=== PATIENT | female | born 2000 | race Caucasian/White ===

== ENCOUNTER 2018-12-16 04:03 | Emergency (ER) | payer OTHER, SELFPAY ==
[2018-12-16 04:05] VITALS: BP 122/93; PULSE 72; RESP 18; TEMP 37.1; O2SAT 99; BMI 38.2
[2018-12-16] MEDS: ACETAMINOPHEN 325 MG TABLET 650 MG PO (04:26)
--- NOTE | 2018-12-16 04:26 | ED_ITS ---
HPI - Head Injury General Chief complaint: Headache Stated complaint: Hit in the head at work Time Seen by Provider: 12/16/18 04:05 Source: patient Mode of arrival: ambulatory Limitations: no limitations History of Present Illness HPI Narrative: Patient is a otherwise healthy 18-year-old female here for evaluation of head injury. Approximately 15 min prior to arrival here in the emergency department she stated that she hit her head on a metal door. She states that it was on the flat portion of the door. She states that she potentially lost consciousness however if she did this for a very short period of time. She states that she does have a headache and some unsteadiness with walking. Has never had a concussion in the past. Related Data Previous Rx's Medication Instructions Recorded amoxicillin 500 mg PO Q8H 7 Days #0 cap 02/16/17 Allergies Allergy/AdvReac Type Severity Reaction Status Date / Time No Known Allergies Allergy Uncoded 01/04/18 12:44 Review of Systems Constitutional Denies fatigue, Denies frequent falls and Reports headache(s) Eyes Denies diplopia ENT Ears, Nose, Mouth, and Throat: Denies vertigo, Reports dizziness, Reports headache(s) and Reports disequilibrium Cardiovascular Denies chest pain, Denies syncope and Denies dyspnea Respiratory Denies dyspnea Gastrointestinal Gastrointestinal: Denies abdominal pain Integumentary/Breasts Denies lesions and Denies rash Neurologic Denies abnormal speech, Denies confusion, Denies vertigo, Reports dizziness, Denies syncope, Denies frequent falls, Reports headache(s), Reports lack of coordination, Denies paresthesias and Reports disequilibrium Psychiatric Denies confusion Endocrine Denies fatigue PFSH Medical History Anxiety (Acute) Social History lives independently: Yes Social History lives independently: Yes Exam Const General: cooperative, healthy appearing, comfortable, well developed, well groomed and No acute distress Orientation: alert, awake and oriented x3 HENMT Head: normal to inspection, normocephalic and atraumatic Nose: external nose normal Face and sinus: normal facial exam Mouth: oral mucosae normal Eyes Pupils: PERRL EOM: EOM intact bilaterally Resp Effort & Inspection: normal respiratory effort Auscultation: clear to auscultation bilaterally Cardio Rate: regular rate Rhythm: regular rhythm Back/Spine/Pelvis Cervical Spine: No cervical spinal tenderness Skin Lesions: no lesions Rashes: no rashes Neuro General: alert, awake and oriented x3 Cranial Nerves: CN's II-XI intact bilaterally Cognition: normal cognition Speech: speech normal Extrem General: normal to inspection and capillary refill normal Psych Appearance: grossly normal and well kempt Scores GCS Gene coma scale eye opening: Spontaneous [place] coma scale verbal response: Orientated [place] coma scale motor response: Obey commands [place] coma scale total score: 15 Nexus Score for C-Spine Focal Neurologic deficit present: No Midline spinal tenderness present: No Altered level of conciousness present: No Intoxication present: No Distracting Injury Present: No Nexus Criteria for C-spine: 0 MDM - Head Injury MDM Narrative Medical decision making narrative: Nontoxic appearing. No depressed skull fracture felt. There are no breaks in the skin that need suturing. Do suspect the patient has a concussion. I did discuss this with her. We discussed the expected course of a concussion. We did discuss potential symptoms that she could have. We did discuss return precautions. Formed her to contact her primary doctor for follow-up. She expressed understanding and agreement with plan. Discharge Plan Departure Patient Disposition: Home Clinical Impression: Closed head injury Qualifiers: Encounter type: initial encounter Qualified Code(s): S09.90XA - Unspecified injury of head, initial encounter Concussion Qualifiers: Encounter type: initial encounter Loss of consciousness presence/duration: with LOC of unspecified duration Qualified Code(s): S06.0X9A - Concussion with loss of consciousness of unspecified duration, initial encounter Instructions: Concussion, Closed Head Injury Activity Restrictions/Additional Instructions: Recommend that you contact your primary care doctor for follow-up. You are only restricted in your activity by avoiding activities that make her symptoms worse. Return to the emergency department for any new or worsening symptoms Prescriptions: No Action amoxicillin 500 MG capsule 500 mg PO Q8H 7 Days Qty: 0 RF: 0 Stand Alone Forms: Work Release Note
== END 2018-12-16 04:39 | disposition home or self-care (01) ==
PROVIDERS: Emergency Provider Emergency Medicine
DX: S06.0X9A Concussion with loss of consciousness of unspecified duration, initial encounter (principal); W22.8XXA Striking against or struck by other objects, initial encounter; Y99.0 Civilian activity done for income or pay
CPT/HCPCS: 99282; 99283

== ENCOUNTER 2020-02-18 04:37 | Emergency (ER) | payer OTHER, MEDICAID, SELFPAY ==
[2020-02-18 04:40] VITALS: BP 136/65; PULSE 92; RESP 20; TEMP 36.4; O2SAT 96; BMI 37.1
--- NOTE | 2020-02-18 04:49 | ED.GENADULT ---
HPI - General Adult General Chief complaint: Shortness of Breath/Dyspnea Stated complaint: SOB/cough up dark green phlem/wheezing Time Seen by Provider: 02/18/20 04:48 History of Present Illness HPI narrative: 19-year-old woman with a history of asthma who has been unable to get into a primary care provider for a number of months. She has been using her albuterol inhaler, 2 puffs, up to 4 times a day and ran out a number of months ago. Her asthma has been getting progressively worse and she is feeling more shortness of breath particularly with exertion and noticing increasing wheeze. Over the last 24 hours she has begin producing greenish sputum shortness of breath and wheeze have all gotten worse. She denies fevers, overall weakness is able to speak in full sentences quite comfortably, no orthopnea, no palpitations, no chest pain, no abdominal pain/nausea/vomiting/diarrhea. Over the last few weeks she has noticed a minor rash over her mid forehead and both cheeks. Slightly erythematous but not painful or pruritic. Related Data Previous Rx's Medication Instructions Recorded amoxicillin 500 mg PO Q8H 7 Days #0 cap 02/16/17 albuterol sulfate 2 puff INHALATION QID PRN #6.7 gram 02/18/20 azithromycin See Rx Instructions .ROUTE 02/18/20 .COMPLEX #6 tab fluticasone propionate 1 puff INHALATION BID #12 gram 02/18/20 Allergies Allergy/AdvReac Type Severity Reaction Status Date / Time No Known Allergies Allergy Uncoded 01/04/18 12:44 Review of Systems Review of Systems Narrative: Pertinent positive and negative findings as per HPI She does note that her left eye had been somewhat itchy over the last week but it seems like it is getting better in the last couple of days Remainder of review of systems is otherwise unremarkable for : Dysuria, hematuria, flank pain MS: Muscle weakness, numbness, joint swelling or warmth Neuro: Syncope, dizziness, tingling Psych: Depression, anxiety, suicidal ideation Patient History Medical History (Updated 02/18/20 @ 05:11 by Corry Dela Cruz MD) Anxiety (Acute) Asthma (Acute) Social History (Updated 12/16/18 @ 04:22 by Vick Young DO) lives independently: Yes Smoking Status: Never smoker Exam Narrative Exam Narrative: General: Healthy appearing, in no acute distress. Able to give a complete and coherent history. Well-nourished well-developed HEENT: Moist mucous membranes, normal sclera bilaterally with no discharge from the eyes Neck: supple, no cervical adenopathy Respiratory: Lungs with scattered wheeze in all lung rosales worse in the bases and rhonchi in the left mid axillary line. There is no retractions no accessory muscle use and no pleural rubs. Cardiac: Regular rate and rhythm no murmurs no bruits Abdomen: Soft nontender good bowel tones, no flank pain Skin: Warm and dry, no rashes Neurologic: Grossly neurologically intact with no obvious asymmetries or abnormalities Extremities: No trauma, well perfused Psych: Cooperative, appropriate insight and affect Initial Vital Signs Initial Vital Signs: Vital Signs Temperature 97.5 F L 02/18/20 04:40 Pulse Rate 92 H 02/18/20 04:40 Respiratory Rate 20 02/18/20 04:40 Blood Pressure 136/65 02/18/20 04:40 Pulse Oximetry 96 02/18/20 04:40 Course Orders Ordered: Discontinued Medications Albuterol (Ventolin Hfa Prepack) 1 box [facility] ONE Stop: 02/18/20 04:59 Last Admin: 02/18/20 05:02 Dose: 1 box Documented by: Vital Signs Vital signs: Vital Signs - 8 hr 02/18/20 04:40 Temperature 97.5 F L Pulse Rate 92 H Respiratory Rate 20 Blood Pressure 136/65 Pulse Oximetry 96 Medical Decision Making [facility] Narrative Medical decision making narrative: Mild intermittent asthma with no inhalers or treatment for the last number of months speaking getting progressively worse now developing symptoms and clinical exam consistent with the left lower lobe pneumonia. She is not significantly hypoxic or febrile. After 2 puffs with an albuterol inhaler and spacer teaching the wheezing is significantly improved. Will start her on an inhaled steroid, I do not think that oral steroids are necessary are required at this time, prescribed an albuterol inhaler and also place her on azithromycin for the left-sided developing pneumonia. There are currently no signs of impending respiratory failure, sepsis at this time. She is safe for home discharge. She does request a Covid test to provide proof of testing to return to work. Discharge Plan Departure Patient Disposition: Home Clinical Impression: Asthma with exacerbation Qualifiers: Asthma severity: moderate Asthma persistence: persistent Qualified Code(s): J45.41 - Moderate persistent asthma with (acute) exacerbation Community acquired pneumonia Qualifiers: Laterality: left Lung location: lower lobe of lung Qualified Code(s): J18.9 - Pneumonia, unspecified organism Instructions: DI for Asthma -- Adult, DI for Pneumonia -- Adult Activity Restrictions/Additional Instructions: Thank you for coming in today I have given you a albuterol inhaler along with a spacer. Please take 2 puffs every 6 hours as needed for wheezing. I am also going to prescribe a steroid inhaler, fluticasone, to use 1 puff in the morning and night. Make sure you wash her mouth out after use this inhaler. Using this regularly will hopefully provide better overall control for your asthma so you need to use the albuterol inhaler less frequently On clinical exam today, you sound like your developing a pneumonia in the left lower lobe of your lung. I have given you a prescription for azithromycin to be taken for 5 days. If you find that you are having increasing fevers, increasing shortness of breath developing new or more concerning symptoms it would be very appropriate to return to the emergency room for further evaluation. Please be persistent with your insurance in finding an available primary care provider. Prescriptions: New fluticasone propionate 220 mcg/actuation HFA aerosol inhaler 1 puff INHALATION BID Qty: 12 RF: 0 azithromycin 250 mg tablet See Rx Instructions .ROUTE .COMPLEX Qty: 6 RF: 0 albuterol sulfate 90 mcg/actuation HFA aerosol inhaler 2 puff INHALATION QID PRN (Reason: shortness of breath or wheezing) Qty: 6.7 RF: 0 No Action amoxicillin 500 MG capsule 500 mg PO Q8H 7 Days Qty: 0 RF: 0 Referrals: Aguilar Taylor MD [Primary Care Provider] -
[2020-02-18] MEDS: ALBUTEROL HFA PREPACK 1 BOX MISC (05:02)
[2020-02-18 05:24] VITALS: BP 134/60; PULSE 87; RESP 20; TEMP 36.7; O2SAT 95
[2020-02-21 13:12] LABS: COVID19 Sendout NOT DETECTED (Not Detect)
== END 2020-02-18 05:24 | disposition home or self-care (01) ==
PROVIDERS: Emergency Provider Emergency Medicine; PCP Family Medicine
DX: J45.41 Moderate persistent asthma with (acute) exacerbation (principal); J18.9 Pneumonia, unspecified organism; Z11.59 Encounter for screening for other viral diseases
CPT/HCPCS: 87635; 94640; 99281; 99283

== ENCOUNTER 2020-03-26 06:38 | Emergency (ER) | payer OTHER, MEDICAID, SELFPAY ==
[2020-03-26 06:47] VITALS: BP 134/81; PULSE 102; RESP 15; TEMP 37.2; O2SAT 97; BMI 37.1
--- NOTE | 2020-03-26 07:14 | ED_ITS ---
HPI - Extremity Injury (Upper) General Chief Complaint: Extremity Injury, Upper Stated Complaint: right arm nerve/pain since yest. Time Seen by Provider: 03/26/20 07:00 Source: patient Mode of arrival: Ambulatory Limitations: no limitations History of Present Illness HPI narrative: Patient is a 19-year-old female who presents with right wrist pain and elbow pain with numbness and tingling in her middle finger and all up and down her arm. She states has been ongoing for a bit but got significantly worse last evening woke her from her sleep last night. She has not taken anything for pain. She feels like her hand is weak at times. She has the majority of her pain in the elbow. 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 She denies any recent injury MD complaint: injury to: right, elbow and hand Related Data Previous Rx's Medication Instructions Recorded amoxicillin 500 mg PO Q8H 7 Days #0 cap 02/16/17 albuterol sulfate 2 puff INHALATION QID PRN #6.7 gram 02/18/20 azithromycin See Rx Instructions .ROUTE 02/18/20 .COMPLEX #6 tab fluticasone propionate 1 puff INHALATION BID #12 gram 02/18/20 Allergies Allergy/AdvReac Type Severity Reaction Status Date / Time No Known Allergies Allergy Uncoded 01/04/18 12:44 Review of Systems Review of Systems Narrative: GENERAL: Denies chills,fever HEENT: Denies throat pain RESPIRATORY: Denies dyspnea, cough, wheezing CARDIOVASCULAR: Denies chest pain, palpitations GASTROINTESTINAL: Denies nausea, vomiting MUSCULOSKELETAL: See HPI SKIN: No rash, no laceration, no pruritus NEUROLOGIC: Numbness tingling in middle finger see HPI Denies weakness, dizziness, headache 8 point review of systems is negative except for those stated above and HPI Patient History Medical History Anxiety (Acute) Asthma (Acute) Social History lives independently: Yes Smoking Status: Never smoker Smoking Status: Never smoker alcohol intake frequency: 0-2 drinks per day Substance Use Type: does not use Exam Initial Vital Signs Initial Vital Signs: Vital Signs Temperature 99 F 03/26/20 06:47 Pulse Rate 102 H 03/26/20 06:47 Respiratory Rate 15 03/26/20 06:47 Blood Pressure 134/81 03/26/20 06:47 Pulse Oximetry 97 03/26/20 06:47 GENERAL: Well-appearing, well-nourished and in no acute distress. HEENT: Head atraumatic,EOMI, pupils reactive CARDIOVASCULAR: Regular rate and rhythm without murmurs, rubs or gallops. RESPIRATORY: Breath sounds equal bilaterally, no wheezes rales or rhonchi. EXTREMITIES: Normal range of motion, no clubbing or edema. Neurovascularly intact Right hand positive Phalen's and Tinel sign sensation intact radial median and ulnar nerve intact good abduction and adduction of fingers good wrist flexion and extension although it is painful. Good pronation and supination. She is tender on the lateral olecranon. No gross bony deformities peripheral pulses intact NEUROLOGICAL: Alert and oriented x4.Normal gait and speech. Cranial nerves II through XII grossly intact. SKIN: Warm, dry, no laceration, no petechiae, no rashes or lesions. Procedures Orthopedic Splinting/Casting Injury #1: Side: right Upper Extremity Injury Location: wrist Upper Extremity Immobilizer: wrist splint Post splinting neuro exam: intact Post splinting vascular exam: intact Placed by: Nursing Course Orders Ordered: Discontinued Medications Ibuprofen (Advil) 800 mg PO NOW ONE Stop: 03/26/20 07:42 Last Admin: 03/26/20 07:49 Dose: 800 mg Documented by: VIKTORIA Vital Signs Vital signs: Vital Signs - 8 hr 03/26/20 06:47 03/26/20 07:34 03/26/20 08:06 Temperature 99 F Pulse Rate 102 H 91 H Pulse Rate [Right Radial] 94 H Respiratory Rate 15 20 Blood Pressure 134/81 112/75 Pulse Oximetry 97 98 Discharge Plan Departure Patient Disposition: Home Clinical Impression: Acute carpal tunnel syndrome Qualifiers: Laterality: right Qualified Code(s): G56.01 - Carpal tunnel syndrome, right upper limb Discharge Date/Time: 03/26/20 08:05 Instructions: Carpal Tunnel Syndrome Activity Restrictions/Additional Instructions: *You have been diagnosed with right carpal tunnel *What to do: Wear wrist splint while sleeping at night and will active during the day may take off for bathing try to keep it on for at least 2 weeks to see if there is improvement *Continue to take medications as directed Ibuprofen 800 mg every 8 hours with food if needed for pain *Follow up with your primary care provider in 2-3 days *Return to ER if you should have increased weakness worsening numbness or tingling or any new, worsening or concerning symptoms Prescriptions: No Action amoxicillin 500 MG capsule 500 mg PO Q8H 7 Days Qty: 0 RF: 0 fluticasone propionate 220 mcg/actuation HFA aerosol inhaler 1 puff INHALATION BID Qty: 12 RF: 0 azithromycin 250 mg tablet See Rx Instructions .ROUTE .COMPLEX Qty: 6 RF: 0 albuterol sulfate 90 mcg/actuation HFA aerosol inhaler 2 puff INHALATION QID PRN (Reason: shortness of breath or wheezing) Qty: 6.7 RF: 0 Referrals: [facility] [Outside]
[2020-03-26 07:34] VITALS: PULSE 94
[2020-03-26] MEDS: IBUPROFEN 400 MG TABLET 800 MG PO (07:49)
[2020-03-26 08:06] VITALS: BP 112/75; PULSE 91; RESP 20; O2SAT 98
== END 2020-03-26 08:05 | disposition home or self-care (01) ==
PROVIDERS: Emergency Provider Emergency Medicine
DX: G56.01 Carpal tunnel syndrome, right upper limb (principal); M25.521 Pain in right elbow
CPT/HCPCS: 99282; 99283

== ENCOUNTER 2021-10-23 23:51 | Emergency (ER) | payer OTHER, MEDICAID, SELFPAY ==
[2021-10-24 00:04] VITALS: BP 136/87; PULSE 96; RESP 20; TEMP 36.9; O2SAT 97; BMI 38.2
--- NOTE | 2021-10-24 00:18 | ED.PREGNANCY ---
HPI - General Chief complaint: OB/Uterine Contractions Stated complaint: vaginal bleeding, Time Seen by Provider: 10/24/21 00:00 Source: patient Mode of arrival: Ambulatory Limitations: no limitations History of Present Illness HPI Narrative: Patient is a 20-year-old female presenting today concern for miscarriage. She states that she miscarried at 7 months in 2017. She had a surprise had routine ultrasound with her OBGYN home. Ultrasound she said reports says that she was 10 weeks and that she was probably miscarrying. She wanted another opinion today night. She started having some increased bleeding few clots when she wipes. Not needing to change her pad. She is having some minor cramping as well. No dizziness lightheadedness or shortness of breath. She says she is getting a lot of this information from he OB group she is with. She has an appointment with them on Tuesday as well. Related Data Previous Rx's Medication Instructions Recorded amoxicillin 500 mg capsule 500 mg PO Q8H 7 Days #0 cap 02/16/17 albuterol sulfate 90 mcg/actuation 2 puff INHALATION QID PRN #6.7 gram 02/18/20 aerosol inhaler azithromycin 250 mg tablet See Rx Instructions .ROUTE 02/18/20 .COMPLEX #6 tab fluticasone propionate 220 1 puff INHALATION BID #12 gram 02/18/20 mcg/actuation HFA aerosol inhaler Allergies Allergy/AdvReac Type Severity Reaction Status Date / Time No Known Allergies Allergy Uncoded 01/04/18 12:44 Review of Systems Review of Systems Narrative: GENERAL: Denies chills, fatigue, malaise, fever, sweats, travel HEENT: Denies sinus pain, ear pain, sore throat, difficulty swallowing, neck pain RESPIRATORY: Denies dyspnea, cough, wheezing, hemoptysis, sputum. CARDIOVASCULAR: Denies chest pain, palpitations, orthopnea, edema GASTROINTESTINAL: Denies nausea, vomiting, abdominal pain, diarrhea, constipation, melena. : Denies dysuria, frequency, incontinence, hematuria, urinary retention, flank pain. 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 12 point review of systems is negative except for those stated above and HPI Exam Initial Vital Signs Initial Vital Signs: Vital Signs Temperature 98.5 F 10/24/21 00:04 Pulse Rate 96 H 10/24/21 00:04 Respiratory Rate 20 10/24/21 00:04 Blood Pressure 136/87 10/24/21 00:04 Pulse Oximetry 97 10/24/21 00:04 GENERAL: Alert well-appearing 20-year-old and in no acute distress. HEENT: Head atraumatic,EOMI, pupils reactive, face symmetric, moist mucous membranes CARDIOVASCULAR: Regular rate and rhythm without murmurs, rubs or gallops. RESPIRATORY: Breath sounds equal bilaterally, no wheezes rales or rhonchi. ABDOMEN: Soft, nontender. Normoactive bowel sounds all 4 quadrants. No guarding or rebound. PELVIC: Normal external exam. Scant blood in vagina, small clot noted. No tissue. Os open EXTREMITIES: Normal range of motion, no clubbing or edema. Neurovascularly intact NEUROLOGICAL: Alert and oriented x4.Normal gait and speech. SKIN: Warm, dry, no laceration, no petechiae, no rashes or lesions. Course Orders Ordered: ED Orders 10/24/21 00:49 ABO RH Type Stat CBC Auto Diff [Complete Blood Count AUTO DIFF] Stat CMP [Comprehensive Metabolic Panel] Stat HCG Quantitative /Beta subunit Stat Discontinued Medications Lorazepam (Lorazepam 0.5 Mg Tablet) 1 mg PO NOW ONE Stop: 10/24/21 01:31 Last Admin: 10/24/21 01:39 Dose: 1 mg Documented by: JAYME Vital Signs Vital signs: Vital Signs - 8 hr 10/24/21 00:04 10/24/21 01:56 Temperature 98.5 F Pulse Rate 96 H 109 H Respiratory Rate 20 20 Blood Pressure 136/87 133/68 Pulse Oximetry 97 94 MDM - OB/Uterine Contractions Lab Data Result diagrams: 10/24/21 00:49 10/24/21 00:49 Labs: Lab Results 10/24/21 10/24/21 10/24/21 Range/Units 00:49 00:49 00:49 WBC 12.5 H (4.5-11.0) X10^3/uL RBC 4.25 (4.0-5.2) X10^6/uL Hgb 13.0 (12.0-16.0) g/dL Hct 37.0 (36-46) % MCV 87.1 (80-100) fL MCH 30.5 (26-34) PG MCHC 35.0 (30-36) % RDW 12.4 (11.6-14.8) % Plt Count 333 (150-400) X10^3/uL Neut % (Auto) 66.0 (50-75) % Lymph % (Auto) 23.6 L (25-40) % [place] % (Auto) 7.6 (3-14) % Eos % (Auto) 2.4 (2-4) % Baso % (Auto) 0.4 (0-2) % Neut # (Auto) 8200 H (3597-4133) /uL Lymph # (Auto) 2900 (2683-3591) /uL [place] # (Auto) 900 (0-900) /uL Eos # (Auto) 300 (0-450) /uL Baso # (Auto) 100 (0-100) /uL Sodium 137 (137-145) mmol/L Potassium 3.9 (3.4-5.1) mmol/L Chloride 106 (98-107) mmol/L Carbon Dioxide 26 (22-32) mmol/L BUN 11 (7-17) mg/dL Creatinine 0.60 (0.52-1.04) mg/dL Estimated GFR > 60.0 (>60) mL/min BUN/Creatinine Ratio 18.3 (6-22) Glucose 98 (70-100) mg/dL Calcium 9.6 (8.4-10.2) mg/dL Total Bilirubin 0.4 (0.2-1.3) mg/dL AST 26 (14-36) IU/L ALT 26 (<35) IU/L Alkaline Phosphatase 64 (38-126) U/L Total Protein 7.8 (6.3-8.2) g/dL Albumin 4.3 (3.5-5.0) g/dL Globulin 3.5 (1.7-4.1) g/dL Albumin/Globulin Ratio 1.2 (1.0-2.8) HCG, Quant 7051.6 mIU/mL Blood Type A Positive Point of Care Testing Test Results Positive Urine Dip Bedside Urine Glucose Negative Bedside Urine Bilirubin - Negative Bedside Urine Ketone - Negative Urine Specific [place] 1.015 Bedside Urine Occult Blood +++ Bedside Urine pH 6 Bedside Urine Protein - Negative Bedside Urine Urobilinogen - Negative Bedside Urine Nitrite - Negative Bedside Urine Leukocytes - Negative Esterase MDM Narrative Medical decision making narrative: Ultrasound report from [facility] find at 1:30 p.m. this afternoon a very early intrauterine with crown-rump length measuring 6 weeks 3 days without heart tones noted. It is possible at this very early stage have crown-rump length without visible heartbeat therefore recommendation correlation with serial beta HCGs levels and possible ultrasound in 1-2 weeks Patient is having increasing bleeding I discussed with her that she has possibly miscarrying. HCG level today is 7000 she needs to be repeated in 48 hours she has an appointment with OB on Tuesday (2 days). Exam does not show significant amount bleeding. No need to repeat ultrasound that was done less than 12 hours ago. Discharge Plan Departure Patient Disposition: Home Clinical Impression: Threatened Activity Restrictions/Additional Instructions: HC.6 *You have been diagnosed with threatened *What to do: At this time is too early to tell if you are missed during however other concern is high. You will need to have hormone levels rechecked in 48 hours. Please contact your OB. Recommend pelvic rest, nothing in or out of vagina. Monitor bleeding *Continue to take medications as directed Tylenol 650 mg every 4-6 hours if needed for [id number] pain *Follow up with your OB, Dr. Morley as scheduled next week. or call [phone] *Return to ER if you should have increasing bleeding more than 2 super pads in 1 hour, dizziness, lightheadedness, increasing pain or any new, worsening or concerning symptoms Prescriptions: No Action amoxicillin 500 MG capsule 500 mg PO Q8H 7 Days Qty: 0 0RF fluticasone propionate 220 mcg/actuation HFA aerosol inhaler 1 puff INHALATION BID Qty: 12 0RF azithromycin 250 mg tablet See Rx Instructions .ROUTE .COMPLEX Qty: 6 0RF Rx Instructions: take 500 mg today (day 1), then 250 mg for 4 days (days 2-5) albuterol sulfate 90 mcg/actuation HFA aerosol inhaler 2 puff INHALATION QID PRN (Reason: shortness of breath or wheezing) Qty: 6.7 0RF
[2021-10-24 01:06] LABS: Add Manual Diff / Slide Review NO; Basophils Absolute Auto 100 /uL (0-100); Basophils Percent Auto 0.4 % (0-2); Eosinophils Absolute Auto 300 /uL (0-450); Eosinophils Percent Auto 2.4 % (2-4); Lymphocytes Absolute Auto 2900 /uL (1100-4500); Lymphocytes Percent Auto 23.6 % (25-40); Mean Corpuscular Hemoglobin 30.5 PG (26-34); Mean Corpuscular Volume 87.1 fL (80-100); Monocytes Absolute Auto 900 /uL (0-900); Monocytes Percent Auto 7.6 % (3-14); Neutrophils Absolute Auto 8200 /uL (1500-7000); Platelet Count 333 X10^3/uL (150-400); Red Blood Cell Count 4.25 X10^6/uL (4.0-5.2); Red Cell Distribution Width 12.4 % (11.6-14.8); White Blood Cell Count 12.5 X10^3/uL (4.5-11.0)
[2021-10-24 01:15] LABS: Alanine Aminotransferase 26 IU/L (<35); Albumin 4.3 g/dL (3.5-5.0); Albumin Globulin Ratio 1.2 (1.0-2.8); Alkaline Phosphatase 64 U/L (38-126); Aspartate Aminotransferase 26 IU/L (14-36); BUN Creatinine Ratio 18.3 (6-22); Bilirubin Total 0.4 mg/dL (0.2-1.3); Blood Urea Nitrogen 11 mg/dL (7-17); Calcium 9.6 mg/dL (8.4-10.2); Carbon Dioxide 26 mmol/L (22-32); Chloride 106 mmol/L (98-107); Estimated Glomerular Filt Rate > 60.0 mL/min (>60); Globulin 3.5 g/dL (1.7-4.1); Glucose 98 mg/dL (70-100); HEMOLYSIS < 15 (0-50); Potassium 3.9 mmol/L (3.4-5.1); Sodium 137 mmol/L (137-145); Total Protein 7.8 g/dL (6.3-8.2)
[2021-10-24 01:32] LABS: HCG Quantitative /Beta subunit 7051.6 mIU/mL
[2021-10-24] MEDS: LORazepam 0.5 MG TABLET 1 MG PO (01:39)
[2021-10-24 01:56] VITALS: BP 133/68; PULSE 109; RESP 20; O2SAT 94
== END 2021-10-24 01:59 | disposition home or self-care (01) ==
PROVIDERS: Emergency Provider Emergency Medicine
DX: O20.0 Threatened abortion (principal); Z3A.01 Less than 8 weeks gestation of pregnancy
CPT/HCPCS: 80053; 81003; 81025; 84702; 85025; 86900; 86901; 99283

== ENCOUNTER 2022-08-20 12:58 | Emergency (ER) | payer OTHER, MEDICAID, SELFPAY ==
[2022-08-20 13:21] VITALS: BP 125/76; PULSE 89; RESP 16; TEMP 36.6; O2SAT 99; BMI 46.5
--- NOTE | 2022-08-20 13:25 | DI.RAD.S_ITS ---
PROCEDURE: XR ANKLE RT MIN 3V INDICATIONS: fall with injury TECHNIQUE: Three views of the ankle were acquired. COMPARISON: None. FINDINGS: Bones: No fractures or dislocations. Ankle mortise is normally aligned. No suspicious bony lesions. Soft tissues: No tibiotalar joint effusion. Achilles tendon appears normal. IMPRESSION: Intact right ankle. Dictated by: Alva Iyer M.D. on 08/20/2022 at 14:59 Approved by: Alva Iyer M.D. on 08/20/2022 at 15:00
--- NOTE | 2022-08-20 16:37 | ED_ITS ---
HPI - Extremity Injury (Lower) <ISA Wilhelm - Last Filed: 08/20/22 17:08> General Chief Complaint: Extremity Injury, Lower Stated Complaint: two falls in t-1 on R ankle swollen Time Seen by Provider: 08/20/22 16:14 Mode of arrival: Ambulatory History of Present Illness HPI Narrative: This is a 21-year-old female presents to the emergency department complaining of 2 falls in the last 2 days where she rolled her right ankle and is complaining of pain and had difficulty ambulating today. She has pain on the medial aspect and the lateral aspect, denies any open wound, states that she was getting ready for work and walking out to the car and rolled her ankle and fell down. She endorses swelling to the right ankle, denies weakness, states it is painful to bear weight but she is able to. She has history of right ankle injuries in the past. She denies any numbness or tingling, any knee pain, or any low back pain. Related Data Previous Rx's Medication Instructions Recorded amoxicillin 500 mg capsule 500 mg PO Q8H 7 days #0 caps 02/16/17 albuterol sulfate 90 mcg/actuation 2 puff inhalation QID PRN 02/18/20 aerosol inhaler shortness of breath or wheezing #6.7 grams azithromycin 250 mg tablet See Rx Instructions PO .COMPLEX 02/18/20 pneumonia #6 tabs fluticasone propionate 220 1 puff inhalation BID asthma #12 02/18/20 mcg/actuation HFA aerosol inhaler grams Allergies Allergy/AdvReac Type Severity Reaction Status Date / Time sulfamethoxazole AdvReac Severe Palpitation Verified 08/20/22 13:21 [From s Sulfamethoxazole-Trimethoprim] trimethoprim AdvReac Severe Palpitation Verified 08/20/22 13:21 [From s Sulfamethoxazole-Trimethoprim] Review of Systems <ISA Wilhelm - Last Filed: 08/20/22 17:08> Review of Systems Narrative: Review of systems is negative for acute abnormalities unless otherwise noted in HPI Patient History <ISA Wilhelm - Last Filed: 08/20/22 17:08> Medical History Anxiety Asthma Social History lives independently: Yes Smoking Status: Current every day smoker Smoking Status: Current every day smoker tobacco type: vaping alcohol intake frequency: a few times a week Substance Use Type: does not use Exam <ISA Wilhelm - Last Filed: 08/20/22 17:08> Narrative Exam Narrative: Reviewed vitals signs and nursing notes. General: cooperative, comfortable, in no acute distress, well groomed MSK: moves all extremities, neurovascularly intact, no weakness, normal tone, edema to the medial aspect of her right ankle, no tenderness over medial or lateral malleoli, mild tenderness over the CFL ligament on the medial aspect, dorsiflexion plantar extension are intact without deficit, full range of motion to right knee and right ankle and limited only due to pain. Neurovascularly intact, PT pulses are 2+, Skin: brisk capillary refill, without pallor or erythema Neuro: normal speech and cognition, A&O x3, ambulatory, clear speech Psych: mental status is grossly normal, congruent mood, normal affect, pleasant and cooperative Initial Vital Signs Initial Vital Signs: Vital Signs Temperature 98 F 08/20/22 13:21 Pulse Rate 89 08/20/22 13:21 Respiratory Rate 16 08/20/22 13:21 Blood Pressure 125/76 08/20/22 13:21 Pulse Oximetry 99 08/20/22 13:21 Oxygen Delivery Method 08/20/22 13:21 <Vick Young DO - Last Filed: 08/20/22 17:24> Initial Vital Signs Initial Vital Signs: Vital Signs Temperature 98 F 08/20/22 13:21 Pulse Rate 89 08/20/22 13:21 Respiratory Rate 16 08/20/22 13:21 Blood Pressure 125/76 08/20/22 13:21 Pulse Oximetry 99 08/20/22 13:21 Oxygen Delivery Method 08/20/22 13:21 Procedures <ISA Wilhelm - Last Filed: 08/20/22 17:08> Orthopedic Splinting/Casting Injury #1: Side: right Lower Extremity Injury Location: ankle Lower Extremity Immobilizer: stirrup splint Post splinting neuro exam: intact Post splinting vascular exam: intact Placed by: Nursing Course <ISA Wilhelm Last Filed: 08/20/22 17:08> Orders Ordered: ED Orders 08/20/22 13:25 XR ankle RT min 3V Stat Discontinued Medications Ketorolac Tromethamine (Ketorolac 30 Mg/Ml Vial) 30 mg IM NOW ONE Stop: 08/20/22 16:37 Last Admin: 08/20/22 16:55 Dose: 30 mg Documented By: AT Vital Signs Vital signs: Vital Signs - 8 hr 08/20/22 13:21 08/20/22 17:06 Temperature 98 F Pulse Rate 89 66 Respiratory Rate 16 18 Blood Pressure 125/76 126/66 Pulse Oximetry 99 99 Oxygen Delivery Method Room Air Room Air <Vick Young DO - Last Filed: 08/20/22 17:24> Orders Ordered: ED Orders 08/20/22 13:25 XR ankle RT min 3V Stat Discontinued Medications Ketorolac Tromethamine (Ketorolac 30 Mg/Ml Vial) 30 mg IM NOW ONE Stop: 08/20/22 16:37 Last Admin: 08/20/22 16:55 Dose: 30 mg Documented By: AT Vital Signs Vital signs: Vital Signs - 8 hr 08/20/22 13:21 08/20/22 17:06 Temperature 98 F Pulse Rate 89 66 Respiratory Rate 16 18 Blood Pressure 125/76 126/66 Pulse Oximetry 99 99 Oxygen Delivery Method Room Air Room Air MDM - Extremity Injury (Lower) <Carly Wolff [facility] - Last Filed: 08/20/22 17:08> Imaging Data Extremity x-ray #1: Radiologist's Impression: PROCEDURE:? XR ANKLE RT MIN 3V ? INDICATIONS:? fall with injury ? TECHNIQUE:? Three views of the ankle were acquired.? ? COMPARISON:? None. ? FINDINGS:? ? Bones:? No fractures or dislocations.? Ankle mortise is normally aligned.? No suspicious bony lesions.? ? Soft tissues:? No tibiotalar joint effusion.? Achilles tendon appears normal.? ? ? IMPRESSION:? Intact right ankle. ? ? ? Dictated by: Alva Iyer M.D. on 08/20/2022 at 14:59 ? ? Approved by: Alva Iyer M.D. on 08/20/2022 at 15:00 ? = MDM Narrative Medical decision making narrative: This is a 21-year-old female presents to the emergency department after 2 right ankle injuries in the last 2 days and patient comes in with concern for increased medial right ankle pain and pain with bearing weight. X-ray of her right ankle does not show any acute fracture or other abnormality. Patient did not have tenderness over medial or lateral malleoli, there is mild edema but no ecchymosis, erythema or open wound. Full range of motion is intact without deficit, patient is neurovascularly intact and able to ambulate. Ankle air stirrup splint was applied by the RN, patient tolerated well, encouraged her to elevate, use [id number] Motrin and Tylenol as needed, ice and work note was given for the next few days until she is able to bear weight for a full shift and return to work. Patient is appropriate and amenable to discharge home. Vital signs are stable on repeat examination is unremarkable. Patient has been informed of results. Patient has been given strict return to ER precautions for any new or worsening symptoms. Patient understands to follow up closely with outpatient providers as instructed. Patient understands plan and agrees to discharge home. All questions and concerns answered at this time. Discharge Plan Departure Patient Disposition: Home Clinical Impression: Right ankle sprain Qualifiers: Encounter type: initial encounter Involved ligament of ankle: calcaneofibular ligament Qualified Code(s): S93.411A - Sprain of calcaneofibular ligament of right ankle, initial encounter Instructions: Ankle Sprain Activity Restrictions/Additional Instructions: *You have been diagnosed with a sprain of your right ankle, the x-ray does not show fracture which is good news. Please use the stirrup splint while you are walking any shoe to help protect your ankle from rolling again. Please take ibuprofen 800 mg every 8 hours with food and water, take Tylenol 650 mg with that and apply a topical agent of choice. Please ice this frequently, elevate, return to work in your able to stand for a few hours a day. I hope you feel better soon, you can follow-up at [facility] if you have worsening of this, please follow-up with your regular doctor as needed. I hope it feels better soon. *What to do: *Please continue to take your regular medications as directed. [ ] New medication prescriptions sent to your pharmacy: [ ] [ ] New medication written as a paper prescription [ x] No new medications given *Please follow up with your primary care provider in 2-3 days, call for an appointment. Let them know you were seen in the Emergency Department and that we asked that you be seen for follow-up. We will electronically transmit a record of today's note if your PCP is in our system *If you do not have a primary care provider please contact [phone] to establish care with one of the [facility] primary care providers. *Return to Emergency Department if you should have any new, worsening, or concerning symptoms, such as [fever greater than 101F, chills, worsening pain, persistent vomiting or other bothersome symptoms]. Prescriptions: No Action amoxicillin 500 MG capsule 500 mg PO Q8H 7 Days Qty: 0 0RF fluticasone propionate 220 mcg/actuation HFA aerosol inhaler 1 puff INHALATION BID Qty: 12 0RF azithromycin 250 mg tablet See Rx Instructions .ROUTE .COMPLEX Qty: 6 0RF Rx Instructions: take 500 mg today (day 1), then 250 mg for 4 days (days 2-5) albuterol sulfate 90 mcg/actuation HFA aerosol inhaler 2 puff INHALATION QID PRN (Reason: shortness of breath or wheezing) Qty: 6.7 0RF Referrals: [facility] [Provider Group] Stand Alone Forms: Work Release Note Visit Report Forms: Patient Portal/API <Vick Young, DO - Last Filed: 08/20/22 17:24> Cosign ED Attending Cosmarioature Attestation: Dr Young Co-Sign Statement: I was available for consultation during this patient's emergency department visit. This chart is signed by myself for administrative purposes only. I did not have direct contact with this patient during this visit. They were seen independently by the APC.
[2022-08-20] MEDS: KETOROLAC 30 MG/ML VIAL IM (16:55)
[2022-08-20 17:06] VITALS: BP 126/66; PULSE 66; RESP 18; O2SAT 99
== END 2022-08-20 17:08 | disposition home or self-care (01) ==
PROVIDERS: Emergency Provider Nurse Practitioner Critical Care Medicine
DX: S93.411A Sprain of calcaneofibular ligament of right ankle, initial encounter (principal); W18.30XA Fall on same level, unspecified, initial encounter; R29.6 Repeated falls
CPT/HCPCS: 73610; 96372; 99283; J1885

== ENCOUNTER 2022-09-30 21:31 | Emergency (ER) | payer OTHER, MEDICAID, SELFPAY ==
[2022-09-30] VITALS (7 sets, daily range): BP systolic 98–127; BP diastolic 56–83; PULSE 82–90; RESP 18–23; TEMP 36.7; O2SAT 96–99; BMI 49.1
--- NOTE | 2022-09-30 21:52 | DI.RAD.S_ITS ---
PROCEDURE: XR CHEST 1V INDICATIONS: chest pain TECHNIQUE: One view of the chest was acquired. COMPARISON: [facility], , CHEST 1 VIEW, 11/16/2017, 8:05. FINDINGS: Surgical changes and devices: None. Lungs and pleura: There are medial right infrahilar opacities suggestive of consolidation. Left lung is clear. No pleural effusions or pneumothorax. Mediastinum: Mediastinal contours appear normal. Heart size is normal. Bones and chest wall: No suspicious bony lesions. Overlying soft tissues appear unremarkable. IMPRESSION: 1. Medial right infrahilar opacities suggestive of consolidation due to pneumonia, versus atelectasis. Dictated by: Ilia Winters M.D. on 09/30/2022 at 22:53 Approved by: Ilia Winters M.D. on 09/30/2022 at 22:54
--- NOTE | 2022-09-30 22:05 | ED.CHESTPAIN ---
HPI - Chest Pain General Chief Complaint: Chest Pain Stated Complaint: feels like heart if flutering and stoping Time Seen by Provider: 09/30/22 21:53 Source: patient Mode of arrival: Ambulatory Limitations: no limitations History of Present Illness HPI narrative: 21-year-old female with a history of anxiety disorder who is here for evaluation of 3 days of occasional episodes where she feels like her heart is fluttering. At the time my evaluation she was not having symptoms. States that it has been occasional over the past couple days. She states she is also having some chest discomfort. Initially it was only associated with the palpitations but is now become more consistent. Shortness of breath. No lower extremity swelling. Has never had this in the past. Has not tried anything for the symptoms prior to arrival. Related Data Previous Rx's Medication Instructions Recorded amoxicillin 500 mg capsule 500 mg PO Q8H 7 days #0 caps 02/16/17 albuterol sulfate 90 mcg/actuation 2 puff inhalation QID PRN 02/18/20 aerosol inhaler shortness of breath or wheezing #6.7 grams azithromycin 250 mg tablet See Rx Instructions PO .COMPLEX 02/18/20 pneumonia #6 tabs fluticasone propionate 220 1 puff inhalation BID asthma #12 02/18/20 mcg/actuation HFA aerosol inhaler grams Allergies Allergy/AdvReac Type Severity Reaction Status Date / Time sulfamethoxazole AdvReac Severe Palpitation Verified 08/20/22 13:21 [From s Sulfamethoxazole-Trimethoprim] trimethoprim AdvReac Severe Palpitation Verified 08/20/22 13:21 [From s Sulfamethoxazole-Trimethoprim] Review of Systems Constitutional Constitutional: Reports system reviewed and no additional complaints, except as documented Cardiovascular Cardiovascular: Reports system reviewed and no additional complaints, except as documented Respiratory Respiratory: Reports system reviewed and no additional complaints, except as documented Gastrointestinal Gastrointestinal: Reports system reviewed and no additional complaints, except as documented Integumentary/Breasts Skin/Breast: Reports system reviewed and no additional complaints, except as documented Neurologic Neurologic: Reports system reviewed and no additional complaints, except as documented Hematologic/Lymphatic On Anticoagulants: No Patient History Medical History (Updated 09/30/22 @ 23:47 by Vick Young DO) Anxiety Asthma Social History lives independently: Yes Smoking Status: Current every day smoker Smoking Status: Current every day smoker tobacco type: vaping alcohol intake frequency: a few times a week Substance Use Type: does not use Exam Initial Vital Signs Initial Vital Signs: Vital Signs Pulse Rate 89 09/30/22 21:47 Respiratory Rate 19 09/30/22 21:47 Pulse Oximetry 99 09/30/22 21:47 HENMT Head: normal to inspection and normocephalic Resp Effort & Inspection: normal respiratory effort Auscultation: clear to auscultation bilaterally Cardio Rate: regular rate Rhythm: regular rhythm GI Inspection: normal to inspection Skin General: no rashes or lesions noted Neuro General: patient alert, patient awake and moves all extremities Extrem General: normal to inspection and capillary refill normal Course Orders Ordered: ED Orders 09/30/22 21:50 Complete Blood Count AUTO DIFF Stat Comprehensive Metabolic Panel Stat Magnesium Stat Troponin & CK Cardiac Panel Stat 09/30/22 21:52 XR chest 1V Stat EKG-12 Lead Stat 09/30/22 22:09 Covid-19 + FLU A/B + RSV - PCR Stat 09/30/22 22:10 Covid-19 + FLU A/B + RSV - PCR Stat Discontinued Medications Aspirin (Aspirin 81 Mg Chew Tab) 324 mg PO NOW ONE Stop: 09/30/22 21:53 Last Admin: 09/30/22 23:42 Dose: Not Given Documented By: OW Vital Signs Vital signs: Vital Signs - 8 hr 09/30/22 21:47 09/30/22 21:51 09/30/22 21:51 Temperature Pulse Rate 89 82 Respiratory Rate 19 23 Blood Pressure 127/83 Pulse Oximetry 99 98 Oxygen Delivery Method 09/30/22 21:54 09/30/22 22:00 09/30/22 22:30 Temperature 98.1 F Pulse Rate 90 89 Respiratory Rate 20 23 Blood Pressure 123/79 112/66 Pulse Oximetry 96 96 Oxygen Delivery Method Room Air Room Air 09/30/22 23:00 09/30/22 23:30 Temperature Pulse Rate 87 84 Respiratory Rate 21 18 Blood Pressure 98/56 L 101/61 Pulse Oximetry 97 97 Oxygen Delivery Method Room Air Room Air MDM - Chest Pain Lab Data Attestation: I reviewed the patient's lab results. Result diagrams: 09/30/22 21:50 09/30/22 21:50 Labs: Lab Results 01/02/1509/30/22 09/30/22 Range/Units 21:50 21:50 22:10 WBC 10.7 (4.5-11.0) X10^3/uL RBC 4.50 (4.0-5.2) X10^6/uL Hgb 13.7 (12.0-16.0) g/dL Hct 39.9 (36-46) % MCV 88.8 (80-100) fL MCH 30.5 (26-34) PG MCHC 34.4 (30-36) % RDW 12.0 (11.6-14.8) % Plt Count 352 (150-400) X10^3/uL Neut % (Auto) 58.5 (50-75) % Lymph % (Auto) 30.0 (25-40) % [place] % (Auto) 7.7 (3-14) % Eos % (Auto) 3.0 (2-4) % Baso % (Auto) 0.8 (0-2) % Neut # (Auto) 6200 (3830-1954) /uL Lymph # (Auto) 3200 (7004-3169) /uL [place] # (Auto) 800 (0-900) /uL Eos # (Auto) 300 (0-450) /uL Baso # (Auto) 100 (0-100) /uL Sodium 139 (137-145) mmol/L Potassium 3.8 (3.4-5.1) mmol/L Chloride 103 (98-107) mmol/L Carbon Dioxide 25 (22-32) mmol/L BUN 13 (7-17) mg/dL Creatinine 0.82 (0.52-1.04) mg/dL Estimated GFR > 60 (>60) mL/min BUN/Creatinine Ratio 15.9 (6-22) Glucose 95 (70-100) mg/dL Calcium 9.2 (8.4-10.2) mg/dL Magnesium 1.8 (1.6-2.3) mg/dL Total Bilirubin 0.6 (0.2-1.3) mg/dL AST 35 (14-36) IU/L ALT 40 H (<35) IU/L Alkaline Phosphatase 82 (38-126) U/L Total Creatine Kinase 111 (30-135) U/L CK-MB (CK-2) < 0.22 (<2.37) ng/mL CK-MB (CK-2) Rel Index 0.2 L (1.5-5.0) % Troponin I < 0.012 (0.01-0.034) ng/mL Total Protein 8.3 H (6.3-8.2) g/dL Albumin 4.4 (3.5-5.0) g/dL Globulin 3.9 (1.7-4.1) g/dL Albumin/Globulin Ratio 1.1 (1.0-2.8) SARS-CoV-2 (PCR) Negative (Negative) Influenza A (RT-PCR) Flu a negative (NEGATIVE) Influenza B (RT-PCR) Flu b negative (NEGATIVE) RSV (PCR) Negative (Negative) ECG Data Attestation: I personally reviewed and interpreted this ECG as follows: Interpretation: Sinus rhythm Ventricular rate is 76 Normal axis Normal QRS Normal QTC No ST T wave changes MDM Narrative Medical decision making narrative: Patient did experience symptoms while here in the emergency department however review of the monitor at the time did not show any abnormalities. Patient has been sinus rhythm with a normal rate since arrival. Her workup here in the ER is unremarkable. Will have the patient talk with her primary doctor about the indications for a Holter monitor. She was given strict return precautions. She expressed understanding and agreement. Discharge Plan Departure Patient Disposition: Home Clinical Impression: Heart palpitations Instructions: DI for Arrhythmias Activity Restrictions/Additional Instructions: Continue to take all your medications as directed and contact your primary doctor to schedule a follow-up to discuss the indications for a Holter monitor. Return to the emergency department for any new or worsening symptoms. Prescriptions: No Action amoxicillin 500 MG capsule 500 mg PO Q8H 7 Days Qty: 0 0RF fluticasone propionate 220 mcg/actuation HFA aerosol inhaler 1 puff INHALATION BID Qty: 12 0RF azithromycin 250 mg tablet See Rx Instructions .ROUTE .COMPLEX Qty: 6 0RF Rx Instructions: take 500 mg today (day 1), then 250 mg for 4 days (days 2-5) albuterol sulfate 90 mcg/actuation HFA aerosol inhaler 2 puff INHALATION QID PRN (Reason: shortness of breath or wheezing) Qty: 6.7 0RF Referrals: Aguilar Taylor MD [Primary Care Provider] - Stand Alone Forms: Patient Portal/API
[2022-09-30 22:10] LABS: Add Manual Diff / Slide Review NO; Basophils Absolute Auto 100 /uL (0-100); Basophils Percent Auto 0.8 % (0-2); Eosinophils Absolute Auto 300 /uL (0-450); Hematocrit 39.9 % (36-46); Hemoglobin 13.7 g/dL (12.0-16.0); Lymphocytes Absolute Auto 3200 /uL (1100-4500); Mean Corpuscular HGB Conc 34.4 % (30-36); Mean Corpuscular Hemoglobin 30.5 PG (26-34); Mean Corpuscular Volume 88.8 fL (80-100); Monocytes Absolute Auto 800 /uL (0-900); Monocytes Percent Auto 7.7 % (3-14); Neutrophils Absolute Auto 6200 /uL (1500-7000); Neutrophils Percent Auto 58.5 % (50-75); Platelet Count 352 X10^3/uL (150-400); White Blood Cell Count 10.7 X10^3/uL (4.5-11.0)
[2022-09-30 22:17] LABS: Alanine Aminotransferase 40 IU/L (<35); Albumin 4.4 g/dL (3.5-5.0); Albumin Globulin Ratio 1.1 (1.0-2.8); Alkaline Phosphatase 82 U/L (38-126); Aspartate Aminotransferase 35 IU/L (14-36); BUN Creatinine Ratio 15.9 (6-22); Bilirubin Total 0.6 mg/dL (0.2-1.3); Blood Urea Nitrogen 13 mg/dL (7-17); Calcium 9.2 mg/dL (8.4-10.2); Carbon Dioxide 25 mmol/L (22-32); Chloride 103 mmol/L (98-107); Creatine Kinase 111 U/L (30-135); Estimated Glomerular Filt Rate > 60 mL/min (>60); Globulin 3.9 g/dL (1.7-4.1); Glucose 95 mg/dL (70-100); HEMOLYSIS 24 (0-50); Magnesium 1.8 mg/dL (1.6-2.3); Potassium 3.8 mmol/L (3.4-5.1); Sodium 139 mmol/L (137-145); Total Protein 8.3 g/dL (6.3-8.2)
[2022-09-30 22:29] LABS: Troponin I < 0.012 ng/mL (0.01-0.034)
[2022-09-30 22:44] LABS: CKMB % Relative Index 0.2 % (1.5-5.0); Creatine Kinase MB < 0.22 ng/mL (<2.37)
[2022-09-30 22:59] LABS: Influenza A - CEPHEID Flu A NEGATIVE (NEGATIVE); Influenza B - CEPHEID Flu B NEGATIVE (NEGATIVE); Respiratory Syncytial Virus Negative (Negative)
[2022-09-30 23:14] LABS: COVID-19 CEPHEID 4-PLEX PCR Negative (Negative)
== END 2022-09-30 23:45 | disposition home or self-care (01) ==
PROVIDERS: Emergency Provider Emergency Medicine; PCP Family Medicine
DX: R00.2 Palpitations (principal); R07.9 Chest pain, unspecified; Z20.822 Contact with and (suspected) exposure to COVID-19
CPT/HCPCS: 0241U; 36415; 71045; 80053; 82550; 82553; 83735; 84484; 85025; 93005; 93010; 99284

== ENCOUNTER 2022-11-22 15:25 | Emergency (ER) | payer OTHER, MEDICAID, SELFPAY ==
[2022-11-22 15:46] VITALS: BP 110/72; PULSE 73; RESP 16; TEMP 36.6; O2SAT 97; BMI 41.5
[2022-11-22 16:16] LABS: COVID19 -Nasal RAPID Negative (Negative)
--- NOTE | 2022-11-22 17:05 | ED.GENADULT ---
HPI - General Adult General Chief complaint: Upper Respiratory Symptoms Stated complaint: coughing, tightness in chest, hard to breathe Time Seen by Provider: 11/22/22 16:59 Source: patient Mode of arrival: Ambulatory History of Present Illness HPI narrative: Patient is a 22-year-old female who is here for evaluation of approximately 3 days of tightness in her chest and coughing and hard to breathe. She states that her roommate recently had COVID. Patient is tested herself multiple times over the past couple days and has been negative. Not a productive cough. No vomiting. She did get somewhat lightheaded today while standing in the shower. She denies any palpitations. One of her coughing episodes today she stated that it did seem to be blood-tinged. Related Data Previous Rx's Medication Instructions Recorded amoxicillin 500 mg capsule 500 mg PO Q8H 7 days #0 caps 02/16/17 albuterol sulfate 90 mcg/actuation 2 puff inhalation QID PRN 02/18/20 aerosol inhaler shortness of breath or wheezing #6.7 grams azithromycin 250 mg tablet See Rx Instructions PO .COMPLEX 02/18/20 pneumonia #6 tabs fluticasone propionate 220 1 puff inhalation BID asthma #12 02/18/20 mcg/actuation HFA aerosol inhaler grams albuterol sulfate 90 mcg/actuation 2 puff inhalation QID PRN 11/22/22 aerosol inhaler shortness of breath or wheezing #8.5 grams Allergies Allergy/AdvReac Type Severity Reaction Status Date / Time sulfamethoxazole AdvReac Severe Palpitation Verified 11/22/22 15:52 [From s Sulfamethoxazole-Trimethoprim] trimethoprim AdvReac Severe Palpitation Verified 11/22/22 15:52 [From s Sulfamethoxazole-Trimethoprim] Review of Systems Constitutional Constitutional: Reports system reviewed and no additional complaints, except as documented ENT Ears, Nose, Mouth, and Throat: Reports system reviewed and no additional complaints, except as documented Respiratory Respiratory: Reports system reviewed and no additional complaints, except as documented Gastrointestinal Gastrointestinal: Reports system reviewed and no additional complaints, except as documented Integumentary/Breasts Skin/Breast: Reports system reviewed and no additional complaints, except as documented Patient History Medical History Anxiety Asthma Social History lives independently: Yes Smoking Status: Current every day smoker Smoking Status: Current every day smoker tobacco type: vaping alcohol intake frequency: a few times a week Substance Use Type: does not use Exam Initial Vital Signs Initial Vital Signs: Vital Signs Temperature 97.9 F 11/22/22 15:46 Pulse Rate 73 11/22/22 15:46 Respiratory Rate 16 11/22/22 15:46 Blood Pressure 110/72 11/22/22 15:46 Pulse Oximetry 97 11/22/22 15:46 Oxygen Delivery Method 11/22/22 15:46 Const General: cooperative and comfortable Resp Effort & Inspection: normal respiratory effort Auscultation: clear to auscultation bilaterally Cardio Rate: regular rate Rhythm: regular rhythm Course Orders Ordered: ED Orders 11/22/22 15:50 COVID19 -Nasal RAPID/Pre-Proc Stat Vital Signs Vital signs: Vital Signs - 8 hr 11/22/22 15:46 Temperature 97.9 F Pulse Rate 73 Respiratory Rate 16 Blood Pressure 110/72 Pulse Oximetry 97 Oxygen Delivery Method Room Air Medical Decision Making Lab Data Lab results reviewed: Yes I reviewed the patient's lab results. Labs: Lab Results 11/22/22 Range/Units 15:50 SARS-CoV-2 (PCR) Negative (Negative) MDM Narrative Medical decision making narrative: Patient has no respiratory distress. Lungs are clear. Afebrile. Clinically does not have pneumonia. We can hold on any radiologic studies for now. Her COVID test was negative. Patient states she has had an albuterol inhaler in the past. I told her that she did not have any wheezing so this may not be all that helpful to her today but I will refill it for her. Will discharge patient home with return precautions. She expressed understanding and agreement. Discharge Plan Departure Patient Disposition: Home Clinical Impression: Chest congestion, Cough Instructions: Cough Activity Restrictions/Additional Instructions: Continue to take all of your medications as directed. I do recommend that you test yourself daily for COVID at home. Return to emergency department for any new or worsening symptoms. Prescriptions: New albuterol sulfate 90 mcg/actuation HFA aerosol inhaler 2 puff inhalation QID PRN (Reason: shortness of breath or wheezing) Qty: 8.5 0RF No Action amoxicillin 500 MG capsule 500 mg PO Q8H 7 Days Qty: 0 0RF fluticasone propionate 220 mcg/actuation HFA aerosol inhaler 1 puff INHALATION BID Qty: 12 0RF azithromycin 250 mg tablet See Rx Instructions .ROUTE .COMPLEX Qty: 6 0RF Rx Instructions: take 500 mg today (day 1), then 250 mg for 4 days (days 2-5) albuterol sulfate 90 mcg/actuation HFA aerosol inhaler 2 puff INHALATION QID PRN (Reason: shortness of breath or wheezing) Qty: 6.7 0RF Referrals: Aguilar Taylor MD [Primary Care Provider] - Stand Alone Forms: Patient Portal/API
--- NOTE | 2022-11-22 17:10 | PC.NURSE ---
exposed to covid. wants to be tested, states nasal congestion, denies other sx
== END 2022-11-22 17:10 | disposition home or self-care (01) ==
PROVIDERS: Emergency Provider Emergency Medicine; PCP Family Medicine
DX: R09.89 Other specified symptoms and signs involving the circulatory and respiratory systems (principal); R05.9 Cough, unspecified; Z20.822 Contact with and (suspected) exposure to COVID-19
CPT/HCPCS: 87635; 99281; 99282; C9803

== ENCOUNTER 2023-09-01 19:48 | Emergency (ER) | payer OTHER, MEDICAID, SELFPAY ==
[2023-09-01 20:05] VITALS: BP 146/85; PULSE 78; RESP 18; TEMP 36.6; O2SAT 97; BMI 33.3
--- NOTE | 2023-09-01 22:43 | ED.DENTAL ---
HPI - Dental/Oral General Chief complaint: Dental/Oral Stated complaint: dental infection getting worse Time Seen by Provider: 09/01/23 22:17 Source: patient Mode of arrival: Ambulatory History of Present Illness HPI Narrative: 22-year-old female presents for 2nd opinion of dental infection. She was seen last night at [facility] and diagnosed with a dental infection. She was discharged with clindamycin and Peridex. She states that she does not feel like she was completely evaluated and she wants a 2nd opinion. She reports concerned because her brother apparently several years ago of an uncontrolled dental infection. The dental infection apparently spread and became an abscess, however the patient went into cardiac arrest on the operating table and he ultimately . Patient has been on less than 24 hours of antibiotics. Reports right-sided dental pain and states that she feels like she can feel pus in the back of her mouth. She plans to go to a walk-in dentist office tomorrow morning. Related Data Previous Rx's Medication Instructions Recorded amoxicillin 500 mg capsule 500 mg PO Q8H 7 days #0 caps 02/16/17 albuterol sulfate 90 mcg/actuation 2 puff inhalation QID PRN 02/18/20 aerosol inhaler shortness of breath or wheezing #6.7 grams azithromycin 250 mg tablet See Rx Instructions PO .COMPLEX 02/18/20 pneumonia #6 tabs fluticasone propionate 220 1 puff inhalation BID asthma #12 02/18/20 mcg/actuation HFA aerosol inhaler grams albuterol sulfate 90 mcg/actuation 2 puff inhalation QID PRN 11/22/22 aerosol inhaler shortness of breath or wheezing #8.5 grams clindamycin HCl 150 mg capsule 150 mg PO TID #21 caps 09/01/23 Allergies Allergy/AdvReac Type Severity Reaction Status Date / Time sulfamethoxazole AdvReac Severe Palpitation Verified 11/22/22 15:52 [From s Sulfamethoxazole-Trimethoprim] trimethoprim AdvReac Severe Palpitation Verified 11/22/22 15:52 [From s Sulfamethoxazole-Trimethoprim] Review of Systems Review of Systems Narrative: Negative except as noted above Patient History Medical History (Updated 09/01/23 @ 22:45 by Janeth David MD) Asthma Anxiety Social History lives independently: Yes Smoking Status: Current every day smoker Smoking Status: Current every day smoker tobacco type: vaping alcohol intake frequency: a few times a week Substance Use Type: does not use Exam Initial Vital Signs Initial Vital Signs: Vital Signs Temperature 97.9 F 09/01/23 20:05 Pulse Rate 78 09/01/23 20:05 Respiratory Rate 18 09/01/23 20:05 Blood Pressure 146/85 H 09/01/23 20:05 Pulse Oximetry 97 09/01/23 20:05 Oxygen Delivery Method Room Air 09/01/23 20:05 Const: Awake, alert, no acute distress, nontoxic appearing ENT: Dental caries present without obvious abscess, no drooling, no pooling of secretions, No facial abscess palpable Cardiac: regular rate, regular rhythm RESP: unlabored, clear bilaterally, no wheezing Skin: Warm, Dry, intact, no rashes Neuro: AO x3, CN II-XII grossly intact, moves all extremities Course Course Course Narrative: Patient presenting for 2nd opinion of dental infection. She does have dental caries present without drainable abscess. There is no trismus, no pooling of secretions. Patient was discharged on clindamycin, which is an appropriate antibiotic choice, however she was discharged on 300 mg daily and per current EMRA guidelines clindamycin should be 450 mg 3 times daily. Patient was informed of increased to antibiotic dose and keep her dental appointment as scheduled. Vital Signs Vital signs: Vital Signs - 8 hr 09/01/23 22:55 Temperature 97.8 F Pulse Rate 78 Respiratory Rate 18 Blood Pressure 120/77 Pulse Oximetry 96 Oxygen Delivery Method Room Air MDM - Dental/Oral Differential Diagnosis Differential diagnosis: Likely gingival abscess, dental caries and toothache Discharge Plan Departure Patient Disposition: Home Clinical Impression: Dental infection Instructions: DI for Dental Pain Activity Restrictions/Additional Instructions: Continue to take your antibiotic as prescribed. If you notice worsening swelling or pain despite 48 hours of antibiotic therapy then I recommend returning for repeat evaluation. Continue to take clindamycin. Total should be 450mg three times daily. Prescriptions: New clindamycin HCl 150 mg capsule 150 mg PO TID Qty: 21 0RF Rx Instructions: TAKE WITH THE PREVIOUSLY PRESCRIBED 300MG CLINDAMYCIN TID - TOTAL DOSAGE 450MG PO TID FOR 7 DAYS No Action amoxicillin 500 MG capsule 500 mg PO Q8H 7 Days Qty: 0 0RF albuterol sulfate 90 mcg/actuation HFA aerosol inhaler 2 puff inhalation QID PRN (Reason: shortness of breath or wheezing) Qty: 8.5 0RF fluticasone propionate 220 mcg/actuation HFA aerosol inhaler 1 puff INHALATION BID Qty: 12 0RF azithromycin 250 mg tablet See Rx Instructions .ROUTE .COMPLEX Qty: 6 0RF Rx Instructions: take 500 mg today (day 1), then 250 mg for 4 days (days 2-5) albuterol sulfate 90 mcg/actuation HFA aerosol inhaler 2 puff INHALATION QID PRN (Reason: shortness of breath or wheezing) Qty: 6.7 0RF Referrals: Aguilar Taylor MD [Primary Care Provider] - Stand Alone Forms: Patient Portal/API
[2023-09-01 22:55] VITALS: BP 120/77; PULSE 78; RESP 18; TEMP 36.6; O2SAT 96
== END 2023-09-01 22:57 | disposition home or self-care (01) ==
PROVIDERS: Emergency Provider Emergency Medicine; PCP Family Medicine
DX: K04.7 Periapical abscess without sinus (principal); F17.290 Nicotine dependence, other tobacco product, uncomplicated
CPT/HCPCS: 99281

== ENCOUNTER 2023-10-20 14:04 | Emergency (ER) | payer OTHER, MEDICAID, SELFPAY ==
[2023-10-20 14:07] VITALS: BP 134/85; PULSE 100; RESP 18; TEMP 36.6; O2SAT 97; BMI 51.9
[2023-10-20 15:17] LABS: Add Manual Diff / Slide Review NO; Basophils Absolute Auto 100 /uL (0-100); Basophils Percent Auto 1.2 % (0-2); Eosinophils Absolute Auto 300 /uL (0-450); Eosinophils Percent Auto 3.4 % (2-4); Hematocrit 40.6 % (36-46); Hemoglobin 14.3 g/dL (12.0-16.0); Lymphocytes Absolute Auto 3000 /uL (1100-4500); Lymphocytes Percent Auto 30.4 % (25-40); Mean Corpuscular HGB Conc 35.3 % (30-36); Mean Corpuscular Hemoglobin 31.2 PG (26-34); Mean Corpuscular Volume 88.4 fL (80-100); Monocytes Absolute Auto 700 /uL (0-900); Monocytes Percent Auto 7.3 % (3-14); Neutrophils Absolute Auto 5600 /uL (1500-7000); Neutrophils Percent Auto 57.7 % (50-75); Platelet Count 362 X10^3/uL (150-400); Red Blood Cell Count 4.59 X10^6/uL (4.0-5.2); Red Cell Distribution Width 12.1 % (11.6-14.8); White Blood Cell Count 9.7 X10^3/uL (4.5-11.0)
--- NOTE | 2023-10-20 15:29 | ED_ITS ---
HPI - Dental/Oral <Ann Campuzano PA-C - Last Filed: 10/20/23 18:12> General Chief complaint: Dental/Oral Stated complaint: rt cheek infection, sent by pcp Time Seen by Provider: 10/20/23 14:24 Source: patient Mode of arrival: Ambulatory History of Present Illness HPI Narrative: Patient is a 22-year-old female who was seen at this ER on 09/01/2023 for a 2nd opinion on a dental infection; ED provider agreed with the diagnosis and continued an appropriate antibiotic. Patient reports her symptoms never really got better. She did see a dentist who said this was not a dental problem and was some other medical problem. She then saw her primary care on [facility] around October 05; an ultrasound was done that showed an enlarged lymph node and another gland. She was placed on a 2 week course of Augmentin. She is nearly finished that course but presents today with ongoing swelling, pain, tightness in her right jaw, ear pain, and ongoing headaches. She has also been taking Tylenol and ibuprofen for these symptoms. She reports no previous history of headaches but has had a headache for several days now. She denies trouble swallowing, drooling, difficulty breathing, double vision, ear drainage, fever, chills or night sweats. She endorses some mild stomach upset and nausea, associates this with the antibiotics. Related Data Previous Rx's Medication Instructions Recorded albuterol sulfate 90 mcg/actuation 2 puff inhalation QID PRN 02/18/20 aerosol inhaler shortness of breath or wheezing #6.7 grams fluticasone propionate 220 1 puff inhalation BID asthma #12 02/18/20 mcg/actuation HFA aerosol inhaler grams albuterol sulfate 90 mcg/actuation 2 puff inhalation QID PRN 11/22/22 aerosol inhaler shortness of breath or wheezing #8.5 grams Allergies Allergy/AdvReac Type Severity Reaction Status Date / Time sulfamethoxazole AdvReac Severe Palpitation Verified 11/22/22 15:52 [From s Sulfamethoxazole-Trimethoprim] trimethoprim AdvReac Severe Palpitation Verified 11/22/22 15:52 [From s Sulfamethoxazole-Trimethoprim] Review of Systems <Ann Campuzano PA-C - Last Filed: 10/20/23 18:12> Review of Systems ROS Unobtainable: All systems reviewed & are unremarkable except as noted in HPI and below Patient History <Ann Campuzano PA-C - Last Filed: 10/20/23 18:12> Medical History (Updated 10/20/23 @ 16:59 by Ann Campuzano PA-C) Asthma Anxiety Social History lives independently: Yes Smoking Status: Current every day smoker Smoking Status: Current every day smoker tobacco type: vaping alcohol intake frequency: a few times a week Substance Use Type: does not use Exam <Ann Campuzano PA-C - Last Filed: 10/20/23 18:12> Narrative Exam Narrative: GENERAL: 22 year old patient appears stated age. Well-developed patient, in no acute distress. NEURO: AOx3. HEAD: Atraumatic. Normocephalic. EYES: Pupils equal round and reactive. Extraocular motions intact. No scleral icterus. No injection or drainage. ENT: Nose without bleeding or purulent drainage. Throat without erythema, tonsillar hypertrophy or exudate. Airway patent. Mild buccal edema noted on the right compared to the left. No gingival erythema or edema, no visible caries. No significant edema on the external cheek or jaw line. Patient is tender to palpation over the right angle of the jaw and along the submandibular lymph nodes. No discrete nodes palpated. There is no erythema or edema of the mastoid and no tenderness to percussion of the mastoid or over the frontal and maxillary sinuses. The left TM is pearly lorenzo in the right TM i pearly lorenzo, intact. No ear canal erythema, edema or drainage. No tenderness or swelling under the tongue. NECK: Trachea midline. Non tender CARDIOVASCULAR: Regular rate and rhythm without murmurs, gallops, or rubs. RESPIRATORY: Clear to auscultation. Breath sounds equal bilaterally. No wheezes, rales, or rhonchi. GASTROINTESTINAL: Abdomen soft, non-tender, nondistended. SKIN: No rash or erythema of visible areas Initial Vital Signs Initial Vital Signs: Vital Signs Temperature 98 F 10/20/23 14:07 Pulse Rate 100 H 10/20/23 14:07 Respiratory Rate 18 10/20/23 14:07 Blood Pressure 134/85 10/20/23 14:07 Pulse Oximetry 97 10/20/23 14:07 Oxygen Delivery Method Room Air 10/20/23 14:07 <Deepa Weber DO - Last Filed: 10/23/23 01:45> Initial Vital Signs Initial Vital Signs: Vital Signs Temperature 98 F 10/20/23 14:07 Pulse Rate 100 H 10/20/23 14:07 Respiratory Rate 18 10/20/23 14:07 Blood Pressure 134/85 10/20/23 14:07 Pulse Oximetry 97 10/20/23 14:07 Oxygen Delivery Method Room Air 10/20/23 14:07 Course <Ann Campuzano PA-C - Last Filed: 10/20/23 18:12> Orders Ordered: ED Orders 10/20/23 15:02 CBC Auto Diff [Complete Blood Count AUTO DIFF] Stat CMP [Comprehensive Metabolic Panel] Stat 10/20/23 15:35 CT facial bones w con Stat Vital Signs Vital signs: Vital Signs - 8 hr 10/20/23 14:07 10/20/23 17:01 Temperature 98 F Pulse Rate 100 H 74 Respiratory Rate 18 18 Blood Pressure 134/85 Pulse Oximetry 97 99 Oxygen Delivery Method Room Air Room Air <Deepa Weber DO - Last Filed: 10/23/23 01:45> Orders Ordered: ED Orders 10/20/23 15:02 CBC Auto Diff [Complete Blood Count AUTO DIFF] Stat CMP [Comprehensive Metabolic Panel] Stat 10/20/23 15:35 CT facial bones w con Stat Vital Signs Vital signs: Vital Signs - 8 hr 10/20/23 14:07 10/20/23 17:01 Temperature 98 F Pulse Rate 100 H 74 Respiratory Rate 18 18 Blood Pressure 134/85 Pulse Oximetry 97 99 Oxygen Delivery Method Room Air Room Air MDM - Dental/Oral <Ann Campuzano PA-C - Last Filed: 10/20/23 18:12> Lab Data 10/20/23 15:02 10/20/23 15:02 Labs: Lab Results 10/20/23 Range/Units 15:02 WBC 9.7 (4.5-11.0) X10^3/uL RBC 4.59 (4.0-5.2) X10^6/uL Hgb 14.3 (12.0-16.0) g/dL Hct 40.6 (36-46) % MCV 88.4 (80-100) fL MCH 31.2 (26-34) PG MCHC 35.3 (30-36) % RDW 12.1 (11.6-14.8) % Plt Count 362 (150-400) X10^3/uL Neut % (Auto) 57.7 (50-75) % Lymph % (Auto) 30.4 (25-40) % [place] % (Auto) 7.3 (3-14) % Eos % (Auto) 3.4 (2-4) % Baso % (Auto) 1.2 (0-2) % Neut # (Auto) 5600 (6921-9892) /uL Lymph # (Auto) 3000 (2227-8083) /uL [place] # (Auto) 700 (0-900) /uL Eos # (Auto) 300 (0-450) /uL Baso # (Auto) 100 (0-100) /uL Sodium 136 L (137-145) mmol/L Potassium 4.0 (3.4-5.1) mmol/L Chloride 104 (98-107) mmol/L Carbon Dioxide 22 (22-32) mmol/L BUN 13 (7-17) mg/dL Creatinine 0.67 (0.52-1.04) mg/dL Estimated GFR > 60 (>60) mL/min BUN/Creatinine Ratio 19.4 (6-22) Glucose 84 (70-100) mg/dL Calcium 9.6 (8.4-10.2) mg/dL Total Bilirubin 0.6 (0.2-1.3) mg/dL AST 35 (14-36) IU/L ALT 46 H (<35) IU/L Alkaline Phosphatase 80 (38-126) U/L Total Protein 8.6 H (6.3-8.2) g/dL Albumin 4.6 (3.5-5.0) g/dL Globulin 4.0 (1.7-4.1) g/dL Albumin/Globulin Ratio 1.2 (1.0-2.8) Point of Care Testing Test Results Negative Urine Dip Bedside Urine Glucose Negative Bedside Urine Bilirubin - Negative Bedside Urine Ketone - Negative Urine Specific [place] 1.025 Bedside Urine Occult Blood - Negative Bedside Urine pH 6.0 Bedside Urine Protein - Negative Bedside Urine Urobilinogen - Negative Bedside Urine Nitrite - Negative Bedside Urine Leukocytes - Negative Esterase Imaging Data CT face: Radiologist's Impression: PROCEDURE: CT FACIAL BONES W CON INDICATIONS: tenderness along right mandible/angle of jaw, eval infection TECHNIQUE: After the administration of intravenous contrast, 2.5 mm axial sections acquired from the mid-neck to the frontal sinuses, with coronal and sagittal reformats. For radiation dose reduction, the following was used: automated exposure control, adjustment of mA and/or kV according to patient size. COMPARISON: None. FINDINGS: Image quality: Excellent. Soft tissues: No edema, masses, or fluid collections. No enlarged lymph nodes. Vascular: Visualized vascular structures appear patent throughout. Bony vascular foramina and canals appear normal. Bones: Facial bones appear intact, without fractures, erosions, or destruction. Visualized portions of the skull base and auditory canals also appear normal. Sinuses: Paranasal sinuses are aerated without fluid levels, mucosal thickening, or mucoceles. Mastoid air cells are aerated. IMPRESSION: Normal appearance of the cervical chain lymph nodes. No lymphadenopathy. Dictated by: Biju Allison M.D. on 10/20/2023 at 16:43 Approved by: Biju Allison M.D. on 10/20/2023 at 16:45 [facility] Narrative Medical decision making narrative: Multiple etiologies for patient's symptoms considered including, but not limited to: Dental infection, sialadenitis, osteomyelitis of the jaw, neck space infection, mastoiditis, ear infection No evidence of a dental or ear infection on my exam. Discussed case with Dr. Weber who agrees with further evaluation. Labs without clinically significant abnormality. CT with contrast completed and no evidence of abscess, osteomyelitis, enlarged lymph nodes or other acute findings. Discussed results with the patient. Advised the period of watchful waiting and she is just completing this course of antibiotics and if she does not improve, I would follow up with her PCP and consider referral to ENT versus revisiting the dentist. Patient understands the instructions. Patient's symptoms improved over duration of stay with above-stated therapies. Findings and discharge diagnosis discussed with patient/family followed by verbalization of understanding Return precautions discussed with patient/family whom verbalize understanding of diagnosis and plan <Deepa Weber, DO - Last Filed: 10/23/23 01:45> Lab Data Labs: Lab Results 10/20/23 Range/Units 15:02 WBC 9.7 (4.5-11.0) X10^3/uL RBC 4.59 (4.0-5.2) X10^6/uL Hgb 14.3 (12.0-16.0) g/dL Hct 40.6 (36-46) % MCV 88.4 (80-100) fL MCH 31.2 (26-34) PG MCHC 35.3 (30-36) % RDW 12.1 (11.6-14.8) % Plt Count 362 (150-400) X10^3/uL Neut % (Auto) 57.7 (50-75) % Lymph % (Auto) 30.4 (25-40) % [place] % (Auto) 7.3 (3-14) % Eos % (Auto) 3.4 (2-4) % Baso % (Auto) 1.2 (0-2) % Neut # (Auto) 5600 (7284-6421) /uL Lymph # (Auto) 3000 (6800-2968) /uL [place] # (Auto) 700 (0-900) /uL Eos # (Auto) 300 (0-450) /uL Baso # (Auto) 100 (0-100) /uL Sodium 136 L (137-145) mmol/L Potassium 4.0 (3.4-5.1) mmol/L Chloride 104 (98-107) mmol/L Carbon Dioxide 22 (22-32) mmol/L BUN 13 (7-17) mg/dL Creatinine 0.67 (0.52-1.04) mg/dL Estimated GFR > 60 (>60) mL/min BUN/Creatinine Ratio 19.4 (6-22) Glucose 84 (70-100) mg/dL Calcium 9.6 (8.4-10.2) mg/dL Total Bilirubin 0.6 (0.2-1.3) mg/dL AST 35 (14-36) IU/L ALT 46 H (<35) IU/L Alkaline Phosphatase 80 (38-126) U/L Total Protein 8.6 H (6.3-8.2) g/dL Albumin 4.6 (3.5-5.0) g/dL Globulin 4.0 (1.7-4.1) g/dL Albumin/Globulin Ratio 1.2 (1.0-2.8) Point of Care Testing Test Results Negative Urine Dip Bedside Urine Glucose Negative Bedside Urine Bilirubin - Negative Bedside Urine Ketone - Negative Urine Specific [place] 1.025 Bedside Urine Occult Blood - Negative Bedside Urine pH 6.0 Bedside Urine Protein - Negative Bedside Urine Urobilinogen - Negative Bedside Urine Nitrite - Negative Bedside Urine Leukocytes - Negative Esterase Discharge Plan Departure Patient Disposition: Home Clinical Impression: Mandibular pain Instructions: How To Perform RICE (Rest, Ice, Compress, Elevate) Activity Restrictions/Additional Instructions: * you presented to the emergency department today with pain in the right side of your jaw, radiating to your ear and potentially causing headaches. Your labs do not show any significant abnormality and the CT is normal. There is no evidence of abscess, infection of the bone, or enlarged lymph nodes. It is possible that the most recent course of antibiotics has cleared up any infection but you are still having symptoms due to postinfectious swelling and hypersensitivity of the area. Please complete your current course of antibiotics. I would suggest a period of watchful waiting; I would advise ibuprofen for pain 600 mg q.6 hours as needed and application of ice or heat, whichever feels better. If you are still having symptoms after 1 week of supportive care, I would return to your primary care for re-evaluation and consideration of a referral to correctional program specialist. There is no indication for continued antibiotics. *What to do: *Please continue to take your regular medications as directed. [ ] New medication prescriptions sent to your pharmacy: [ ] [ ] New medication written as a paper prescription [x] No new medications given *Please follow up with your primary care provider in 2-3 days, call for an appointment. Let them know you were seen in the Emergency Department and that we ask that you be seen in follow up. We will electronically transmit a record of today's note if your PCP is in our system *If you do not have a primary care provider please contact the [facility] Resource line at [phone]. They will ask some questions about your medical history and help get you set up with a doctor in the community. *Return to Emergency Department if you should have any new, worsening or concerning symptoms, such as [fever greater than 101 F, shaking chills, worsening pain, persistent vomiting or other concerning symptoms]. Prescriptions: Discontinued amoxicillin 500 MG capsule 500 mg PO Q8H 7 Days Qty: 0 0RF clindamycin HCl 150 mg capsule 150 mg PO TID Qty: 21 0RF Rx Instructions: TAKE WITH THE PREVIOUSLY PRESCRIBED 300MG CLINDAMYCIN TID - TOTAL DOSAGE 450MG PO TID FOR 7 DAYS azithromycin 250 mg tablet See Rx Instructions .ROUTE .COMPLEX Qty: 6 0RF Rx Instructions: take 500 mg today (day 1), then 250 mg for 4 days (days 2-5) No Action albuterol sulfate 90 mcg/actuation HFA aerosol inhaler 2 puff inhalation QID PRN (Reason: shortness of breath or wheezing) Qty: 8.5 0RF fluticasone propionate 220 mcg/actuation HFA aerosol inhaler 1 puff INHALATION BID Qty: 12 0RF albuterol sulfate 90 mcg/actuation HFA aerosol inhaler 2 puff INHALATION QID PRN (Reason: shortness of breath or wheezing) Qty: 6.7 0RF Referrals: Jannette Reynoso PA-C [Primary Care Provider] - Stand Alone Forms: Patient Portal/API ED Sign-out <Deepa Weber DO - Last Filed: 10/23/23 01:45> Cosign ED Attending Cosmarioature Attestation: I was available for consultation.
[2023-10-20 15:32] LABS: Alanine Aminotransferase 46 IU/L (<35); Albumin 4.6 g/dL (3.5-5.0); Albumin Globulin Ratio 1.2 (1.0-2.8); Alkaline Phosphatase 80 U/L (38-126); Aspartate Aminotransferase 35 IU/L (14-36); BUN Creatinine Ratio 19.4 (6-22); Bilirubin Total 0.6 mg/dL (0.2-1.3); Blood Urea Nitrogen 13 mg/dL (7-17); Calcium 9.6 mg/dL (8.4-10.2); Carbon Dioxide 22 mmol/L (22-32); Chloride 104 mmol/L (98-107); Estimated Glomerular Filt Rate > 60 mL/min (>60); Glucose 84 mg/dL (70-100); HEMOLYSIS < 15 (0-50); Sodium 136 mmol/L (137-145); Total Protein 8.6 g/dL (6.3-8.2)
--- NOTE | 2023-10-20 15:35 | DI.CT.S_ITS ---
PROCEDURE: CT FACIAL BONES W CON INDICATIONS: tenderness along right mandible/angle of jaw, eval infection TECHNIQUE: After the administration of intravenous contrast, 2.5 mm axial sections acquired from the mid-neck to the frontal sinuses, with coronal and sagittal reformats. For radiation dose reduction, the following was used: automated exposure control, adjustment of mA and/or kV according to patient size. COMPARISON: None. FINDINGS: Image quality: Excellent. Soft tissues: No edema, masses, or fluid collections. No enlarged lymph nodes. Vascular: Visualized vascular structures appear patent throughout. Bony vascular foramina and canals appear normal. Bones: Facial bones appear intact, without fractures, erosions, or destruction. Visualized portions of the skull base and auditory canals also appear normal. Sinuses: Paranasal sinuses are aerated without fluid levels, mucosal thickening, or mucoceles. Mastoid air cells are aerated. IMPRESSION: Normal appearance of the cervical chain lymph nodes. No lymphadenopathy. Dictated by: Biju Allison M.D. on 10/20/2023 at 16:43 Approved by: Biju Allison M.D. on 10/20/2023 at 16:45
[2023-10-20 17:01] VITALS: PULSE 74; RESP 18; O2SAT 99
== END 2023-10-20 17:01 | disposition home or self-care (01) ==
PROVIDERS: Emergency Provider Physician Assistant; PCP Physician Assistant
DX: R68.84 Jaw pain (principal)
CPT/HCPCS: 36415; 70487; 80053; 81003; 81025; 85025; 99284

== ENCOUNTER 2024-01-17 19:00 | Emergency (ER) | payer OTHER, MEDICAID, SELFPAY ==
[2024-01-17 19:18] VITALS: BP 126/82; PULSE 96; RESP 16; TEMP 36.1; O2SAT 96; BMI 53.2
--- NOTE | 2024-01-17 19:29 | ED.SEIZURE ---
HPI - Seizure General Chief Complaint: Seizure Stated Complaint: Seizure x6 Time Seen by Provider: 01/17/24 19:24 Source: EMS Mode of arrival: EMS History of Present Illness HPI Narrative: 23 year old female with history of anxiety, depression, PTSD, asthma presents by EMS from home for seizure-like activity. Patient was seen earlier this morning at [facility] for same complaint. Family states that she was given Ativan and diagnosed without figure out the reason for her seizure activity. At home patient reportedly had at least 6 episodes of abnormal generalized shaking, occurring ?every 1/2 hour?. Father is upset stating that something is wrong and the other hospital did not figure it out. Patient reports a history of a ?seizure? induced by panic attack 2 years prior. She has never seen a neurologist or had an EEG done Patient's significant other is at bedside. He states he observed the events but did not record them. After the events patient return immediately to consciousness. She did not urinate on herself, she did not bite her tongue. Related Data Previous Rx's Medication Instructions Recorded albuterol sulfate 90 mcg/actuation 2 puff inhalation QID PRN 02/18/20 aerosol inhaler shortness of breath or wheezing #6.7 grams fluticasone propionate 220 1 puff inhalation BID asthma #12 02/17/ mcg/actuation HFA aerosol inhaler grams albuterol sulfate 90 mcg/actuation 2 puff inhalation QID PRN 11/22/22 aerosol inhaler shortness of breath or wheezing #8.5 grams Allergies Allergy/AdvReac Type Severity Reaction Status Date / Time sulfamethoxazole AdvReac Severe Palpitation Verified 01/17/24 19:23 [From s Sulfamethoxazole-Trimethoprim] trimethoprim AdvReac Severe Palpitation Verified 01/17/24 19:23 [From s Sulfamethoxazole-Trimethoprim] diphenhydramine AdvReac Hives Verified 01/17/24 19:23 [From Benadryl] Review of Systems Review of Systems Narrative: See HPI Patient History Medical History (Updated 01/17/24 @ 22:35 by Janeth David MD) Asthma Anxiety Social History lives independently: Yes Smoking Status: Former smoker Smoking Status: Former smoker tobacco type: vaping alcohol intake frequency: a few times a week Substance Use Type: does not use Exam Initial Vital Signs Initial Vital Signs: Vital Signs Temperature 97 F L 01/17/24 19:18 Pulse Rate 96 H 01/17/24 19:18 Respiratory Rate 16 01/17/24 19:18 Blood Pressure 126/82 01/17/24 19:18 Pulse Oximetry 96 01/17/24 19:18 Oxygen Delivery Method Room Air 01/17/24 19:18 Const: Awake, alert, no acute distress, nontoxic appearing Cardiac: regular rate, regular rhythm RESP: unlabored, clear bilaterally, no wheezing Skin: Warm, Dry, intact, no rashes Neuro: AO x3, CN II-XII grossly intact, moves all extremities Course Orders Ordered: ED Orders 01/17/24 19:26 Test Serum,Qual Stat 01/17/24 19:28 CBC Auto Diff [Complete Blood Count AUTO DIFF] Stat CMP [Comprehensive Metabolic Panel] Stat Lactate (Lactic Acid) Stat Troponin & CK Cardiac Panel Stat 01/17/24 19:29 EKG-12 Lead Stat 01/17/24 20:15 CT head/brain wo con Stat Discontinued Medications Droperidol (Droperidol 5 Mg/2 Ml Vial) 2.5 mg IV NOW ONE Stop: 01/17/24 19:37 Last Admin: 01/17/24 20:02 Dose: 2.5 mg Documented By: RON Sodium Chloride (Normal Saline 0.9%) 1,000 mls @ 1,000 mls/hr IV BOLUS ONE Stop: 01/17/24 20:28 Last Infusion: 01/17/24 21:54 Dose: Infused Documented By: Admin: 01/17/24 20:01 Dose: 1,000 mls/hr Documented By: SB Vital Signs Vital signs: Vital Signs - 8 hr 01/17/24 19:18 01/17/24 22:48 Temperature 97 F L Pulse Rate 96 H 89 Respiratory Rate 16 16 Blood Pressure 126/82 112/74 Pulse Oximetry 96 96 Oxygen Delivery Method Room Air Room Air MDM - Seizure Differential Diagnosis Differential diagnosis: Likely intractable seizure disorder, febrile convulsion and focal seizure Lab Data 01/17/24 19:28 01/17/24 19:28 Labs: Lab Results 01/17/24 01/17/24 Range/Units 19:26 19:28 WBC 9.9 (4.5-11.0) X10^3/uL RBC 4.30 (4.0-5.2) X10^6/uL Hgb 13.1 (12.0-16.0) g/dL Hct 38.3 (36-46) % MCV 89.2 (80-100) fL MCH 30.5 (26-34) PG MCHC 34.2 (30-36) % RDW 12.6 (11.6-14.8) % Plt Count 330 (150-400) X10^3/uL Neut % (Auto) 58.9 (50-75) % Lymph % (Auto) 28.7 (25-40) % Luce % (Auto) 7.5 (3-14) % Eos % (Auto) 3.9 (2-4) % Baso % (Auto) 1.0 (0-2) % Neut # (Auto) 5800 (8790-9289) /uL Lymph # (Auto) 2800 (0921-1556) /uL Luce # (Auto) 700 (0-900) /uL Eos # (Auto) 400 (0-450) /uL Baso # (Auto) 100 (0-100) /uL Sodium 137 (137-145) mmol/L Potassium 3.9 (3.4-5.1) mmol/L Chloride 108 H (98-107) mmol/L Carbon Dioxide 24 (22-32) mmol/L BUN 13 (7-17) mg/dL Creatinine 0.64 (0.52-1.04) mg/dL Estimated GFR > 60 (>60) mL/min BUN/Creatinine Ratio 20.3 (6-22) Glucose 94 (70-100) mg/dL Lactate 1.4 (0.7-2.1) mmol/L Calcium 9.9 (8.4-10.2) mg/dL Total Bilirubin 0.5 (0.2-1.3) mg/dL AST 28 (14-36) IU/L ALT 26 (<35) IU/L Alkaline Phosphatase 72 (38-126) U/L Total Creatine Kinase 120 (30-135) U/L Troponin I < 0.012 (0.01-0.034) ng/mL Total Protein 7.6 (6.3-8.2) g/dL Albumin 4.3 (3.5-5.0) g/dL Globulin 3.3 (1.7-4.1) g/dL Albumin/Globulin Ratio 1.3 (1.0-2.8) Serum , Qual Negative (Negative) Imaging Data CT scan - head: Radiologist's Impression: PROCEDURE: CT HEAD/BRAIN WO CON INDICATIONS: 'RECURRENT SEIZURE-LIKE ACTIVITY' TECHNIQUE: Noncontrast 4.5 mm thick angled axial sections acquired from the foramen magnum to the vertex, with coronal and sagittal reformats. For radiation dose reduction, the following was used: automated exposure control, adjustment of mA and/or kV according to patient size. COMPARISON: None. FINDINGS: Image quality: Diagnostic. CSF spaces: Basal cisterns are patent. No extra-axial fluid collections. Ventricles are normal in size and shape. Brain: No midline shift. No intracranial masses or hemorrhage. Dumas-white matter interface is normal. Skull and face: Calvarium and visualized facial bones are intact, without suspicious lesions. Sinuses: Visualized sinuses and mastoids are clear. IMPRESSION: CT head without acute intracranial abnormalities. No mass or mass effect visualized. Dictated by: Gage Corcoran M.D. on 01/17/2024 at 22:07 Approved by: Gage Corcoran M.D. on 01/17/2024 at 22:07 ECG Data Interpretation: Normal sinus rhythm, no acute OTC prolongation, no ST T wave changes MDM Narrative Medical decision making narrative: Patient with recurrent seizure-like activity. Patient has history of the events as well as by standard description are highly suspicious for psychogenic nonepileptic seizures. I was able to review records from [facility] that stated that patient was able to speak in the middle of her seizure activity to ask what medication she was being given. There was a brief episode where patient began to have generalized shaking in the ER bed. This was witnessed by nursing staff and self abated. Patient had no postictal state, she did not bite her tongue, she did not urinate on herself, she return immediately to consciousness. EKG sinus rhythm without concerning arrhythmia or QT prolongation. However, since this is a repeat same-day visit for similar complaint we will add CT of the brain Laboratory work is reviewed, entirely unremarkable. There is no elevated lactic acid, CK is within normal limits. CT of the brain negative for acute findings. Patient given droperidol and no further abnormal shaking activity noted. Patient and family members updated at bedside, I discussed at length at bedside that laboratory work was inconsistent with an epileptic source of seizure activity. Patient states that she is in the process of getting started with a senior loss control specialist and has been prescribed lorazepam. Patient was encouraged to continue to talk to her behavior health specialist and take all medications as her psychiatrist prescribed. Discharge Plan Departure Patient Disposition: Home Clinical Impression: Seizure-like activity Instructions: DI for Seizure (Not Epilepsy/Seizure Disorder) Activity Restrictions/Additional Instructions: Your laboratory work and CT imaging today were reassuring. These are likely stress-induced abnormal movements and not true epileptic seizures. The only way to definitively say for sure is to get an EEG, which a neurologist would do. Continue to follow up with the behavioral therapist. Prescriptions: No Action albuterol sulfate 90 mcg/actuation HFA aerosol inhaler 2 puff inhalation QID PRN (Reason: shortness of breath or wheezing) Qty: 8.5 0RF fluticasone propionate 220 mcg/actuation HFA aerosol inhaler 1 puff INHALATION BID Qty: 12 0RF albuterol sulfate 90 mcg/actuation HFA aerosol inhaler 2 puff INHALATION QID PRN (Reason: shortness of breath or wheezing) Qty: 6.7 0RF Referrals: Jannette Reynoso PA-C [Primary Care Provider] - Stand Alone Forms: Patient Portal/API
[2024-01-17 19:36] LABS: Add Manual Diff / Slide Review NO; Basophils Absolute Auto 100 /uL (0-100); Eosinophils Absolute Auto 400 /uL (0-450); Eosinophils Percent Auto 3.9 % (2-4); Hematocrit 38.3 % (36-46); Hemoglobin 13.1 g/dL (12.0-16.0); Lymphocytes Absolute Auto 2800 /uL (1100-4500); Lymphocytes Percent Auto 28.7 % (25-40); Mean Corpuscular HGB Conc 34.2 % (30-36); Mean Corpuscular Hemoglobin 30.5 PG (26-34); Mean Corpuscular Volume 89.2 fL (80-100); Monocytes Absolute Auto 700 /uL (0-900); Monocytes Percent Auto 7.5 % (3-14); Neutrophils Absolute Auto 5800 /uL (1500-7000); Neutrophils Percent Auto 58.9 % (50-75); Platelet Count 330 X10^3/uL (150-400); Red Cell Distribution Width 12.6 % (11.6-14.8); White Blood Cell Count 9.9 X10^3/uL (4.5-11.0)
--- NOTE | 2024-01-17 19:38 | PC.NURSE ---
Family telephone order supervisor light states patient is seizing. Patient maintained airway, eyes rolled back no full body movement. Activity lasted approx 30-40 sec. Patient able to respond and answer questions immediately after activity stopped. Dr David called to bedside.
[2024-01-17] MEDS: SODIUM CHLORIDE 0.9% 1,000 ML 1000 ML IV (20:01)
[2024-01-17] MEDS: DROPERIDOL 5 MG/2 ML VIAL 2.5 MG IV (20:02)
[2024-01-17 20:03] LABS: Alanine Aminotransferase 26 IU/L (<35); Albumin 4.3 g/dL (3.5-5.0); Albumin Globulin Ratio 1.3 (1.0-2.8); Alkaline Phosphatase 72 U/L (38-126); Aspartate Aminotransferase 28 IU/L (14-36); BUN Creatinine Ratio 20.3 (6-22); Bilirubin Total 0.5 mg/dL (0.2-1.3); Blood Urea Nitrogen 13 mg/dL (7-17); Calcium 9.9 mg/dL (8.4-10.2); Carbon Dioxide 24 mmol/L (22-32); Chloride 108 mmol/L (98-107); Creatine Kinase 120 U/L (30-135); Estimated Glomerular Filt Rate > 60 mL/min (>60); Globulin 3.3 g/dL (1.7-4.1); Glucose 94 mg/dL (70-100); HEMOLYSIS < 15 (0-50); Potassium 3.9 mmol/L (3.4-5.1); Sodium 137 mmol/L (137-145); Total Protein 7.6 g/dL (6.3-8.2)
[2024-01-17 20:04] LABS: Lactate (Lactic Acid) 1.4 mmol/L (0.7-2.1)
[2024-01-17 20:14] LABS: Troponin I < 0.012 ng/mL (0.01-0.034)
--- NOTE | 2024-01-17 20:15 | DI.CT.S_ITS ---
PROCEDURE: CT HEAD/BRAIN WO CON INDICATIONS: 'RECURRENT SEIZURE-LIKE ACTIVITY' TECHNIQUE: Noncontrast 4.5 mm thick angled axial sections acquired from the foramen magnum to the vertex, with coronal and sagittal reformats. For radiation dose reduction, the following was used: automated exposure control, adjustment of mA and/or kV according to patient size. COMPARISON: None. FINDINGS: Image quality: Diagnostic. CSF spaces: Basal cisterns are patent. No extra-axial fluid collections. Ventricles are normal in size and shape. Brain: No midline shift. No intracranial masses or hemorrhage. Dumas-white matter interface is normal. Skull and face: Calvarium and visualized facial bones are intact, without suspicious lesions. Sinuses: Visualized sinuses and mastoids are clear. IMPRESSION: CT head without acute intracranial abnormalities. No mass or mass effect visualized. Dictated by: Gage Corcoran M.D. on 01/17/2024 at 22:07 Approved by: Gage Corcoran M.D. on 01/17/2024 at 22:07
--- NOTE | 2024-01-17 20:35 | PC.NURSE ---
Bed linens changed.
[2024-01-17 20:47] LABS: Pregnancy Test Serum,Qual Negative (Negative)
[2024-01-17 22:48] VITALS: BP 112/74; PULSE 89; RESP 16; O2SAT 96
== END 2024-01-17 22:48 | disposition home or self-care (01) ==
PROVIDERS: Emergency Provider Emergency Medicine; PCP Physician Assistant
DX: R56.9 Unspecified convulsions (principal)
CPT/HCPCS: 70450; 80053; 82550; 83605; 84484; 84703; 85025; 93005; 96374; 99283; 99284; J1790

== ENCOUNTER 2024-07-14 14:53 | Emergency (ER) | payer OTHER, MEDICAID, SELFPAY ==
[2024-07-14 15:06] VITALS: BP 136/90; PULSE 80; RESP 16; TEMP 36.4; O2SAT 97; BMI 41.5
--- NOTE | 2024-07-14 15:21 | ED.DENTAL ---
HPI - Dental/Oral <Carly Oliver PA-C - Last Filed: 07/14/24 16:31> General Chief complaint: Dental/Oral Stated complaint: jaw pain Time Seen by Provider: 07/14/24 15:20 History of Present Illness HPI Narrative: Patient is a very pleasant 23-year-old female presents to the emergency room department with right-sided TMJ pain and discomfort and jaw pain. This has been ongoing for an extended period of time but increasing in discomfort and pain over the past several days. The patient has seen her primary care doctor about this, and was supposed to be referred to ENT however unfortunately that appointment has not been made for her yet. Currently at this time the patient states that the pain is kind of a dull ache in her right jaw area radiating down into the jaw and into her neck. Some minor ear pain, she has been to the dentist and had a workup and has no issues or problems with her teeth. She does not have any ear pain or ear drainage. She has no upper respiratory symptoms. She has no sinus tenderness or pain and no history of sinus infections. Unfortunately the patient was a little bit confused about what medication she can currently take with her antiseizure medications so she has not been taking anything for pain. Currently at this time she has been informed that she can take ibuprofen is given ibuprofen here in the emergency department for discomfort and pain. The patient does have an appointment with her primary care doctor this Tuesday which is good for follow up. She denies any fevers, recent fall, trauma or assault. She has no other further complaints. Related Data Home Medications Medication Instructions Recorded Confirmed lamotrigine 200 mg tablet 200 mg PO DAILY 07/14/24 07/14/24 oxcarbazepine 150 mg tablet 150 mg PO BID 07/14/24 07/14/24 sertraline 50 mg tablet 50 mg PO QAM 07/14/24 07/14/24 Allergies Allergy/AdvReac Type Severity Reaction Status Date / Time sulfamethoxazole AdvReac Severe Palpitation Verified 01/17/24 19:23 [From s Sulfamethoxazole-Trimethoprim] trimethoprim AdvReac Severe Palpitation Verified 01/17/24 19:23 [From s Sulfamethoxazole-Trimethoprim] diphenhydramine AdvReac Hives Verified 01/17/24 19:23 [From Benadryl] Review of Systems <Carly Oliver PA-C - Last Filed: 07/14/24 16:31> Review of Systems Narrative: Negative except as above ENT Comments: Right face jaw and neck pain. Dull and achy with occasional sharp shooting pains. Patient History <Carly Oliver PA-C - Last Filed: 07/14/24 16:31> Medical History (Updated 07/14/24 @ 16:24 by Carly Oliver PA-C) Asthma Anxiety Social History lives independently: Yes Smoking Status: Former smoker Smoking Status: Former smoker tobacco type: vaping alcohol intake frequency: a few times a week Substance Use Type: does not use Exam <Carly Oliver PA-C - Last Filed: 07/14/24 16:31> Initial Vital Signs Initial Vital Signs: Vital Signs Temperature 97.5 F L 07/14/24 15:06 Pulse Rate 80 07/14/24 15:06 Respiratory Rate 16 07/14/24 15:06 Blood Pressure 136/90 07/14/24 15:06 Pulse Oximetry 97 07/14/24 15:06 Oxygen Delivery Method Room Air 07/14/24 15:06 Reviewed Const General: cooperative, healthy appearing, comfortable, well developed, well groomed, No acute distress, No in distress and No anxious Nutritional Appearance: average body habitus and overweight [facility] Head: normal to inspection, normocephalic, atraumatic, No occipital foramen tenderness, No scalp tenderness and No temporal artery tenderness Ears: hearing grossly normal bilaterally, external ears normal, TM's normal bilaterally, TM normal on the right, TM normal on the left, periauricular adenopathy noted and no periauricular adenopathy Mouth: oral mucosae normal, lip normal, tongue normal, salivary ducts normal, oropharynx normal, moist mucous membranes, mucous membranes abnormal, No oral mucosa abnormal, No salivary duct abnormal, No tongue abnormal, No abnormal TMJ, No trismus and No restricted motion Eyes General: Yes appearance normal, both eyes and all related structures Pupils: PERRL EOM: EOM intact bilaterally Resp Auscultation: clear to auscultation bilaterally, no crackles, no rales, no rhonchi and no wheezes Cardio Rate: regular rate Rhythm: regular rhythm Heart Sounds: S1 normal and S2 normal Skin Other: Warm pink and dry Neuro Other: Cranial nerves are grossly intact Extrem Other: Range of motion, strength, pulses, cap refill preserved in the upper and lower extremities Psych Other: Appearance, mental status, speech, movement, mood, affect, attitude, thought process, thought content and judgment are all intact <Deepa Weber DO - Last Filed: 07/15/24 08:27> Initial Vital Signs Initial Vital Signs: Vital Signs Temperature 97.5 F L 07/14/24 15:06 Pulse Rate 80 07/14/24 15:06 Respiratory Rate 16 07/14/24 15:06 Blood Pressure 136/90 07/14/24 15:06 Pulse Oximetry 97 07/14/24 15:06 Oxygen Delivery Method Room Air 07/14/24 15:06 Scores <Carly Oliver PA-C - Last Filed: 07/14/24 16:31> GCS Citation: 15 Course <Carly Oliver PA-C - Last Filed: 07/14/24 16:31> Orders Ordered: Discontinued Medications Acetaminophen (Acetaminophen 325 Mg Tablet) 975 mg PO NOW ONE Stop: 07/14/24 15:31 Last Admin: 07/14/24 15:40 Dose: Not Given Documented By: RIK Ibuprofen (Ibuprofen 400 Mg Tablet) 800 mg PO NOW ONE Stop: 07/14/24 15:37 Last Admin: 07/14/24 15:40 Dose: 800 mg Documented By: RIK Reevaluation(s) Reevaluation #1: Patient given oral Motrin Patient feeling much better Patient ready to be discharged Vital Signs Vital signs: Vital Signs - 8 hr 07/14/24 15:06 Temperature 97.5 F L Pulse Rate 80 Respiratory Rate 16 Blood Pressure 136/90 Pulse Oximetry 97 Oxygen Delivery Method Room Air Reviewed <Deepa Weber DO - Last Filed: 07/15/24 08:27> Orders Ordered: Discontinued Medications Acetaminophen (Acetaminophen 325 Mg Tablet) 975 mg PO NOW ONE Stop: 07/14/24 15:31 Last Admin: 07/14/24 15:40 Dose: Not Given Documented By: RIK Ibuprofen (Ibuprofen 400 Mg Tablet) 800 mg PO NOW ONE Stop: 07/14/24 15:37 Last Admin: 07/14/24 15:40 Dose: 800 mg Documented By: RL Vital Signs Vital signs: Vital Signs - 8 hr 07/14/24 15:06 Temperature 97.5 F L Pulse Rate 80 Respiratory Rate 16 Blood Pressure 136/90 Pulse Oximetry 97 Oxygen Delivery Method Room Air MDM - Dental/Oral <Carly Oliver PA-C - Last Filed: 07/14/24 16:31> MDM Narrative Medical decision making narrative: 23-year-old female history of right-sided jaw pain episodic in nature ongoing for a year this episode the last several days. With a history of undiagnosed TMJ, was supposed to be seen evaluated by ENT, unfortunately that referral has fallen through. Patient has an appointment with her primary care doctor on Tuesday which is great since she can follow up and ask for a referral to be placed for her. Has taken nothing for her discomfort and pain prior to being seen here in the emergency department. No recent injury trauma or fall. Had a whole dental workup was negative for any acute findings. Motrin here in the emergency department States that already she is having relief with the discomfort and pain Supportive therapy education ED precautions, encouraged to take Motrin for discomfort and pain and continue with the hot packs Follow up with her primary care doctor on Tuesday Request a referral to ENT for evaluation TMJ Differential diagnosis; TMJ, versus temporal arteritis. Low suspicion for temporal arteritis. Discharge Plan Departure Patient Disposition: Home Clinical Impression: TMJ arthralgia Qualifiers: Laterality: right Qualified Code(s): M26.621 - Arthralgia of right temporomandibular joint Activity Restrictions/Additional Instructions: Continue with the hot packs [id number] Motrin For discomfort and pain Follow up with your primary care doctor on Tuesday Return to the emergency department as needed Prescriptions: No Action sertraline 50 mg tablet 50 mg PO QAM oxcarbazepine 150 mg tablet 150 mg PO BID lamotrigine 200 mg tablet 200 mg PO DAILY Referrals: Jannette Reynoso PA-C [Primary Care Provider] - Stand Alone Forms: Patient Portal/API ED Sign-out <Deepa Weber DO - Last Filed: 07/15/24 08:27> Cosign ED Attending Cosmarioature Attestation: I was available for consultation.
[2024-07-14] MEDS: IBUPROFEN 400 MG TABLET 800 MG PO (15:40)
[2024-07-14 16:32] VITALS: BP 101/56; PULSE 75; RESP 16; O2SAT 96
== END 2024-07-14 16:32 | disposition home or self-care (01) ==
PROVIDERS: Emergency Provider Physician Assistant; PCP Physician Assistant
DX: M26.621 Arthralgia of right temporomandibular joint (principal)
CPT/HCPCS: 99283

== ENCOUNTER 2025-05-04 14:26 | Emergency (ER) | payer OTHER, MEDICAID, SELFPAY ==
[2025-05-04 14:32] VITALS: BP 133/86; PULSE 76; RESP 20; TEMP 36.6; O2SAT 97; BMI 49.1
--- NOTE | 2025-05-04 14:45 | ED_ITS ---
HPI - <Belen Tang PA-C - Last Filed: 05/04/25 18:49> General Chief complaint: Vaginal Bleeding Stated complaint: , cramping, bleeding Time Seen by Provider: 05/04/25 14:38 Source: patient Mode of arrival: Ambulatory History of Present Illness HPI Narrative: Ms. Bradshaw is a pleasant 24-year-old female, currently 4 weeks and 4 days based on LMP, with a past medical history of seizures, miscarriagex2 (8 months & 10 weeks) who presents to the emergency department for abdominal cramping, vaginal bleeding, nausea vomiting diarrhea and dizziness since this morning. Patient states that she was not actively trying to get but her and her partner were also not trying to prevent . States that her last menstrual period was on April 02 however it only lasted 1.5 days and was much consulting psychiatrist than her typical menstrual cycle. She took a test on because she started developing some cramping and the test was positive. She has continued to have some cramping and has continued to test daily and the positive sign continues to get darker. This morning was the 1st time she woke up and had some vaginal bleeding, states that the bleeding is very minimal and was just some spotting on the toilet paper when she wipes. She has also been having some nausea and vomiting for the last few days and this morning she developed some light colored loose stools. She describes lower abdominal cramping/pain that radiates into the low back as well. Denies fevers, chills, chest pain, shortness of breath, dysuria, hematuria, flank pain, flu-like symptoms. She is here with her best friend. Prescription medications include oxcarbazepine and sertraline, states her seizures are well controlled on this. She is allergic to sulfa antibiotics and antihistamines. She does smoke cigarettes/. History of alcohol use disorder but is currently sober. Denies any other drug use. OBGYN: Dr. Neymar Morley, [facility] Women's Care Related Data Home Medications ?Medication ?Instructions ?Recorded ?Confirmed lamotrigine 200 mg tablet 200 mg PO DAILY 07/14/24 oxcarbazepine 150 mg tablet 150 mg PO BID 07/14/24 sertraline 50 mg tablet 50 mg PO QAM 07/14/24 Allergies Allergy/AdvReac Type Severity Reaction Status Date / Time sulfamethoxazole (From AdvReac Severe Palpitation Verified 05/04/25 14:29 Sulfamethoxazole-Trimethoprim) s trimethoprim (From AdvReac Severe Palpitation Verified 05/04/25 14:29 Sulfamethoxazole-Trimethoprim) s diphenhydramine (From AdvReac Hives Verified 05/04/25 14:29 Benadryl) Review of Systems <Belen Tang PA-C - Last Filed: 05/04/25 18:49> Review of Systems ROS Unobtainable: All systems reviewed & are unremarkable except as noted in HPI and below Exam <Belen Tang PA-C - Last Filed: 05/04/25 18:49> Narrative Exam Narrative: GENERAL: 24 year old patient appears stated age. Obese patient, in no acute distress. HEAD: Atraumatic. Normocephalic. EYES: No scleral icterus. No injection or drainage. NECK: Trachea midline. Cervical ROM intact. CARDIOVASCULAR: Regular rate and rhythm. RESPIRATORY: ?Nonlabored respirations. ?Speaking in clear, full sentences. ?Clear to auscultation. Breath sounds equal bilaterally. No wheezes, rales, or rhonchi. ? GASTROINTESTINAL: Abdomen soft, non-tender, nondistended. BS present. EXTREMITIES: No LE edema. BACK: No CVA tenderness. NEURO: AOx3. ?Clear speech. ?Moves all 4 extremities appropriately. SKIN: No rash or erythema of visible areas Initial Vital Signs Initial Vital Signs: Vital Signs Temperature 98 F 05/04/25 14:32 Pulse Rate 76 05/04/25 14:32 Respiratory Rate 20 05/04/25 14:32 Blood Pressure 133/86 05/04/25 14:32 Pulse Oximetry 97 05/04/25 14:32 Oxygen Delivery Method Room Air 05/04/25 14:32 <Corry Dela Cruz MD - Last Filed: 05/05/25 07:40> Initial Vital Signs Initial Vital Signs: Vital Signs Temperature 98 F 05/04/25 14:32 Pulse Rate 76 05/04/25 14:32 Respiratory Rate 20 05/04/25 14:32 Blood Pressure 133/86 05/04/25 14:32 Pulse Oximetry 97 05/04/25 14:32 Oxygen Delivery Method Room Air 05/04/25 14:32 Course <Belen Tang PA-C - Last Filed: 05/04/25 18:49> Orders Ordered: Discontinued Medications Sodium Chloride (Normal Saline 0.9%) 1,000 mls @ 1,000 mls/hr IV BOLUS ONE Stop: 05/04/25 15:42 Last Infusion: 05/04/25 16:30 Dose: Infused Documented By: Admin: 05/04/25 15:22 Dose: 1,000 mls/hr Documented By: SB Vital Signs Vital signs: Vital Signs - 8 hr 05/04/25 14:32 05/04/25 18:27 Temperature 98 F 98.2 F Pulse Rate 76 62 Respiratory Rate 20 16 Blood Pressure 133/86 107/67 Pulse Oximetry 97 97 Oxygen Delivery Method Room Air Room Air <Corry Dela Cruz MD - Last Filed: 05/05/25 07:40> Orders Ordered: Discontinued Medications Sodium Chloride (Normal Saline 0.9%) 1,000 mls @ 1,000 mls/hr IV BOLUS ONE Stop: 05/04/25 15:42 Last Infusion: 05/04/25 16:30 Dose: Infused Documented By: Admin: 05/04/25 15:22 Dose: 1,000 mls/hr Documented By: SB Vital Signs Vital signs: Vital Signs - 8 hr 05/04/25 14:32 05/04/25 18:27 Temperature 98 F 98.2 F Pulse Rate 76 62 Respiratory Rate 20 16 Blood Pressure 133/86 107/67 Pulse Oximetry 97 97 Oxygen Delivery Method Room Air Room Air MDM - OB/Uterine Contractions <Belen Tang PA-C - Last Filed: 05/04/25 18:49> Medical Records Attestation: I reviewed the patient's medical records. Lab Data 05/04/25 15:01 05/04/25 15:01 Labs: Lab Results 05/04/25 Range/Units 15:01 WBC 10.0 (4.5-11.0) X10^3/uL RBC 4.52 (4.0-5.2) X10^6/uL Hgb 13.9 (12.0-16.0) g/dL Hct 39.4 (36-46) % MCV 87.1 (80-100) fL MCH 30.7 (26-34) PG MCHC 35.2 (30-36) % RDW 12.9 (11.6-14.8) % Plt Count 394 (150-400) X10^3/uL Neut % (Auto) 68.5 (50-75) % Lymph % (Auto) 20.5 L (25-40) % [place] % (Auto) 5.1 (3-14) % Eos % (Auto) 1.8 L (2-4) % Baso % (Auto) 4.1 H (0-2) % Neut # (Auto) 6800 (2677-1511) /uL Lymph # (Auto) 2000 (0181-9530) /uL [place]ades # (Auto) 500 (0-900) /uL Eos # (Auto) 200 (0-450) /uL Baso # (Auto) 400 H (0-100) /uL Sodium 136 L (137-145) mmol/L Potassium 4.1 (3.4-5.1) mmol/L Chloride 104 (98-107) mmol/L Carbon Dioxide 23 (22-32) mmol/L BUN 11 (7-17) mg/dL Creatinine 0.94 (0.52-1.04) mg/dL Estimated GFR > 60 (>60) mL/min BUN/Creatinine Ratio 11.7 (6-22) Glucose 90 (70-99) mg/dL Calcium 9.0 (8.4-10.2) mg/dL Magnesium 1.9 (1.6-2.3) mg/dL Total Bilirubin 0.6 (0.2-1.3) mg/dL AST 22 (14-36) IU/L ALT 21 (<35) IU/L Alkaline Phosphatase 65 (38-126) U/L Total Protein 8.2 (6.3-8.2) g/dL Albumin 4.6 (3.5-5.0) g/dL Globulin 3.6 (1.7-4.1) g/dL Albumin/Globulin Ratio 1.3 (1.0-2.8) Lipase 53 (23-300) U/L HCG, Quant 2595.5 mIU/mL Blood Type A Positive Point of Care Testing Test Results Positive Urine Dip Bedside Urine Glucose Negative Bedside Urine Bilirubin - Negative Bedside Urine Ketone - Negative Urine Specific [place] 1.010 Bedside Urine Occult Blood - Negative Bedside Urine pH 6.0 Bedside Urine Protein - Negative Bedside Urine Urobilinogen - Negative Bedside Urine Nitrite - Negative Bedside Urine Leukocytes - Negative Esterase Imaging Data Pelvic US: Radiologist's Impression: PROCEDURE: US OB <= 14 WEEKS FETUS INDICATIONS: early ; pain; bleeding OUTSIDE/PRIOR DATING DATA: Last menstrual period (LMP): 04/02/2025. LMP-based estimated date of delivery (MARYBEL): 01/07/2026. First dating scan (date and location): Today. Estimated date of delivery (MARYBEL) from first dating scan: 01/01/2026. TECHNIQUE: Real-time scanning was performed of the fetus and maternal pelvic organs, with image documentation. Endovaginal scanning was also performed to better visualize the fetus and maternal ovaries. COMPARISON: None. FINDINGS: Embryo: No embryo present. Gestational sac with mean measurement of 0.7 cm consistent with 5 weeks 3 days. Positive yolk sac. No pole identified. Heart rate: Not detected Maternal organs: Ovaries normal. IMPRESSION: Early of unknown viability. We strive to produce accurate, complete, and clear reports of imaging services. To assist us in improving patient care, this report was composed using standard report templates and voice recognition software. Therefore, it may contain abnormal punctuation, insertions and/or omissions. Occasional wrong-word or sound-alike substitutions may occur. Though we review the report and make efforts to correct it, we do recommend that the report be read carefully in proper context to recognize any text inaccuracies. Dictated by: Venkata Young M.D. on 05/04/2025 at 16:54 Approved by: Venkata Young M.D. on 05/04/2025 at 16:57 [facility] Narrative Medical decision making narrative: 24-year-old female, currently 4 weeks and 4 days based on LMP, with a past medical history of seizures, miscarriagex2 (8 months & 10 weeks) who presents to the emergency department for abdominal cramping, vaginal bleeding, nausea vomiting diarrhea and dizziness since this morning. Differential diagnosis includes but is not limited to ectopic , subchorionic hematoma, 1st trimester , gestational trophoblastic disease, implantation bleeding, cervicitis, fibroids, etc. On exam the patient is in no acute distress, nontoxic-appearing, all vital signs within normal limits, abdominal exam nontender and benign. She is reporting very scant bleeding. Based on LMP of April 02, patient is 4 weeks and 4 days however this menstrual period only lasted 1 day, could have been an implantation bleeding and on menstrual cycle. At this time we will check CBC, CMP, lipase, magnesium given patient's nausea vomiting and diarrhea in addition to pelvic ultrasound, Rh and hCG, urinalysis. We will treat patient with IV fluids. Discussed with the patient that ultrasound today may not show anything, in which case it is likely she will need a 48 hour repeat hCG level. Ultrasound reveals early of unknown viability, with a gestational sac consistent with 5 weeks 3 days, positive yolk sac, no pole. HCG 2595.5. Negative urinalysis. Normal WBC count 10.0, hemoglobin 13.9 hematocrit 39.4. Platelets 394. Sodium 136, potassium 4.1, BUN 11, creatinine 0.94, normal magnesium 1.9, normal LFTs, normal lipase. Patient did not have vomiting or diarrhea during ED stay. Discussed all results with the patient provided her with a printed copy of ultrasound and hCG level. Recommended 48 hour repeat hCG to see if her numbers are going up appropriately or if they your are down trending. Discussed diagnosis threatened miscarriage. Discussed pelvic rest, ED return precautions and prompt follow up with OBGYN. Patient verbalized understanding of all information and is agreeable with the plan, eagerly requesting discharge home, ambulatory and stable for discharge home. <Corry Dela Cruz MD - Last Filed: 05/05/25 07:40> Lab Data Labs: Lab Results 05/04/25 Range/Units 15:01 WBC 10.0 (4.5-11.0) X10^3/uL RBC 4.52 (4.0-5.2) X10^6/uL Hgb 13.9 (12.0-16.0) g/dL Hct 39.4 (36-46) % MCV 87.1 (80-100) fL MCH 30.7 (26-34) PG MCHC 35.2 (30-36) % RDW 12.9 (11.6-14.8) % Plt Count 394 (150-400) X10^3/uL Neut % (Auto) 68.5 (50-75) % Lymph % (Auto) 20.5 L (25-40) % [place] % (Auto) 5.1 (3-14) % Eos % (Auto) 1.8 L (2-4) % Baso % (Auto) 4.1 H (0-2) % Neut # (Auto) 6800 (3234-3152) /uL Lymph # (Auto) 2000 (8940-1781) /uL [place] # (Auto) 500 (0-900) /uL Eos # (Auto) 200 (0-450) /uL Baso # (Auto) 400 H (0-100) /uL Sodium 136 L (137-145) mmol/L Potassium 4.1 (3.4-5.1) mmol/L Chloride 104 (98-107) mmol/L Carbon Dioxide 23 (22-32) mmol/L BUN 11 (7-17) mg/dL Creatinine 0.94 (0.52-1.04) mg/dL Estimated GFR > 60 (>60) mL/min BUN/Creatinine Ratio 11.7 (6-22) Glucose 90 (70-99) mg/dL Calcium 9.0 (8.4-10.2) mg/dL Magnesium 1.9 (1.6-2.3) mg/dL Total Bilirubin 0.6 (0.2-1.3) mg/dL AST 22 (14-36) IU/L ALT 21 (<35) IU/L Alkaline Phosphatase 65 (38-126) U/L Total Protein 8.2 (6.3-8.2) g/dL Albumin 4.6 (3.5-5.0) g/dL Globulin 3.6 (1.7-4.1) g/dL Albumin/Globulin Ratio 1.3 (1.0-2.8) Lipase 53 (23-300) U/L HCG, Quant 2595.5 mIU/mL Blood Type A Positive Point of Care Testing Test Results Positive Urine Dip Bedside Urine Glucose Negative Bedside Urine Bilirubin - Negative Bedside Urine Ketone - Negative Urine Specific [place] 1.010 Bedside Urine Occult Blood - Negative Bedside Urine pH 6.0 Bedside Urine Protein - Negative Bedside Urine Urobilinogen - Negative Bedside Urine Nitrite - Negative Bedside Urine Leukocytes - Negative Esterase Discharge Plan Departure Patient Disposition: Home Clinical Impression: Vaginal bleeding affecting early , Threatened miscarriage Instructions: DI for Vaginal Bleeding During Activity Restrictions/Additional Instructions: Dear Ms. Bradshaw, Thank you for coming to the emergency department. Today you were evaluated for bleeding and cramping in early . Your ultrasound revealed a 5 week 3 day gestational sac within the uterus, but there is not yet a heartbeat. Your blood hCG level is 2,595. At this time it is possible that this is an early normal or that it is the start of a miscarriage. It is very important to call your OBGYN Tuesday morning in order to have 48 hour repeat blood hCG level checked. This number can provide more information about the developing . At this time please rest, hydrate, take care of yourself, avoid strenuous activity and remain on pelvic rest which involves putting nothing into the vagina. Please return to the emergency department if you develop severe pain, persistent bleeding, fevers or any other concerns. Please follow up with your primary care doctor within the next 2-3 days for ER follow-up. (If you do not have a PCP you can call [phone]. ?to schedule an appointment with an [facility] Primary Care Provider) IF YOU DEVELOP ANY NEW OR WORSENING SYMPTOMS, RETURN TO THE ER! Please read the attached instructions, they highlight more specific treatments and interventions for you at home. Thank you for letting me participate in your care, Belen Tang PA-C Prescriptions: No Action sertraline 50 mg tablet 50 mg PO QAM oxcarbazepine 150 mg tablet 150 mg PO BID lamotrigine 200 mg tablet 200 mg PO DAILY Referrals: Jannette Reynoso PA-C [Primary Care Provider, Medical] Stand Alone Forms: Patient Portal/API, Work Release Note ED Sign-out <Corry Dela Cruz MD - Last Filed: 05/05/25 07:40> Cosign ED Attending Aide Attestation: I was immediately available in the department for consultation throughout this patient's visit. Corry Dela Cruz MD
[2025-05-04 15:15] LABS: Add Manual Diff / Slide Review NO; Hematocrit 39.4 % (36-46); Hemoglobin 13.9 g/dL (12.0-16.0); Lymphocytes Absolute Auto 2000 /uL (1100-4500); Mean Corpuscular HGB Conc 35.2 % (30-36); Mean Corpuscular Hemoglobin 30.7 PG (26-34); Mean Corpuscular Volume 87.1 fL (80-100); Platelet Count 394 X10^3/uL (150-400)
[2025-05-04] MEDS: SODIUM CHLORIDE 0.9% 1,000 ML 1000 ML IV (15:22)
[2025-05-04 15:26] LABS: Alanine Aminotransferase 21 IU/L (<35); Albumin 4.6 g/dL (3.5-5.0); Albumin Globulin Ratio 1.3 (1.0-2.8); Alkaline Phosphatase 65 U/L (38-126); Blood Urea Nitrogen 11 mg/dL (7-17); Calcium 9.0 mg/dL (8.4-10.2); Carbon Dioxide 23 mmol/L (22-32); Chloride 104 mmol/L (98-107); Estimated Glomerular Filt Rate > 60 mL/min (>60); Globulin 3.6 g/dL (1.7-4.1); Glucose 90 mg/dL (70-99); HEMOLYSIS < 15 (0-50); Lipase 53 U/L (23-300); Magnesium 1.9 mg/dL (1.6-2.3); Potassium 4.1 mmol/L (3.4-5.1); Sodium 136 mmol/L (137-145); Total Protein 8.2 g/dL (6.3-8.2)
[2025-05-04 15:42] LABS: HCG Quantitative /Beta subunit 2595.5 mIU/mL
[2025-05-04 18:27] VITALS: BP 107/67; PULSE 62; RESP 16; TEMP 36.8; O2SAT 97
== END 2025-05-04 18:40 | disposition home or self-care (01) ==
PROVIDERS: Emergency Provider Physician Assistant; PCP Physician Assistant
DX: O20.0 Threatened abortion (principal); Z3A.01 Less than 8 weeks gestation of pregnancy
CPT/HCPCS: 36415; 76801; 76817; 80053; 81003; 81025; 83690; 83735; 84702; 85025; 86900; 86901; 96360; 99284